=== PATIENT | female | born 1965 | race Caucasian/White ===

== ENCOUNTER 2016-10-29 13:25 | Emergency (ER) | payer SELFPAY ==
[~2016-10-29] VITALS: Ht 167.6 cm; Wt 98.0 kg
[2016-10-29 13:26] VITALS: BP 169/89; PULSE 88; RESP 15; TEMP 98.3; O2SAT 98
[2016-10-29 13:53] VITALS: BP_SYST 131; BP_SYST 137; BP_DIAS 70; BP_DIAS 75; O2SAT 99
[2016-10-29] MEDS ORDERED: ASPIRIN 325 MG TAB PO ONE (14:00)
[2016-10-29] MEDS ORDERED: SODIUM CHLORIDE 0.9% FLUSH 10 ML FLUSH IVF PRN (14:00)
--- NOTE | 2016-10-29 14:31 | PD ---
HPI Chief Complaint: Chest Pain Time Seen by Provider: 14:19 Travel History International Travel<30 days: No Contact w/Intl Traveler<30days: No Traveled to known affect area: No History of Present Illness HPI 51-year-old female that is unaware that presents to the ED for evaluation of right-sided chest pain. Per patient the pain goes from the right side to the mid chest. Per patient it lasted for about an hour. Per patient now it's better and she had nausea. Per patient she is also improved. Per patient she' s had 3 episodes of this before and she didn't think much of it. Per patient she was concerned mainly because of her age as well as the pain being so severe initially. Per patient the pain was severe sharp and constant. She denies any history of heart disease on herself. She takes no medications. The patient her pain is completely gone now. She denies any bowel movement or urinary symptoms. Per patient her pain [id number]. No fevers chills or sweats. No recent travel. No control use. All history of alcohol abuse and she is 10 years sober. No smoking history. No family history of heart disease. PFSH Past Medical History Medical History: Denies Significant Hx Tetanus Vaccination: Unknown Influenza Vaccination: No ?: Not Past Surgical History Hysterectomy: Yes Social History Alcohol Use: No Tobacco Use: No Substance Use: No Allergies-Medications (Allergen,Severity, Reaction): Coded Allergies: Amoxicillin (Verified Allergy, Severe, RASH, 10/29/16) Reported Meds & Prescriptions Reported Meds & Active Scripts Active No Active Prescriptions or Reported Medications Review of Systems Except as stated in HPI: all other systems reviewed are Neg Physical Exam Narrative GENERAL: SKIN: Warm and dry. HEAD: Atraumatic. Normocephalic. EYES: Pupils equal and round. No scleral icterus. No injection or drainage. ENT: No nasal bleeding or discharge. Mucous membranes pink and moist. Tongue is midline. No uvula deviation. NECK: Trachea midline. No JVD. CARDIOVASCULAR: Regular rate and rhythm. No murmurs, S3, S4. Chest pain is not reproducible with touch. RESPIRATORY: No accessory muscle use. Clear to auscultation. Breath sounds equal bilaterally. GASTROINTESTINAL: Abdomen soft, non-tender, nondistended. Hepatic and splenic margins not palpable. MUSCULOSKELETAL: Extremities without clubbing, cyanosis, or edema. No obvious deformities. Full range of motion of the upper and lower extremities bilaterally. 2+ pulses bilaterally. NEUROLOGICAL: Awake and alert. No obvious cranial nerve deficits. Motor grossly within normal limits. Five out of 5 muscle strength in the arms and legs. Normal speech. PSYCHIATRIC: Appropriate mood and affect; insight and judgment normal. Data Data Last Documented VS Vital Signs Date Time Temp Pulse Resp B/P Pulse Ox O2 Delivery O2 Flow Rate FiO2 10/29/16 13:53 137/75 131/70 10/29/16 13:49 Nasal Cannula 2 10/29/16 13:26 98.3 88 15 98 Orders Electrocardiogram (10/29/16 13:56) Ckmb (Isoenzyme) Profile (10/29/16 13:56) Complete Blood Count With Diff (10/29/16 13:56) Comprehensive Metabolic Panel (10/29/16 13:56) Magnesium (Mg) (10/29/16 13:56) Troponin I (10/29/16 13:56) Lipase (10/29/16 13:56) Chest, Single Ap (10/29/16 13:56) Ecg Monitoring (10/29/16 13:56) Bilateral Bp Monitoring (10/29/16 13:56) Iv Access Insert/Monitor (10/29/16 13:56) Oximetry (10/29/16 13:56) Aspirin (Aspirin) (10/29/16 14:00) Sodium Chloride 0.9% Flush (Ns Flush) (10/29/16 14:00) Us Abdomen Gallbladder (10/29/16 ) Diphenhydramine Inj (Benadryl Inj) (10/29/16 15:00) Labs Laboratory Tests Test 10/29/16 14:10 White Blood Count 9.0 TH/MM3 Red Blood Count 4.83 MIL/MM3 Hemoglobin 14.2 GM/DL Hematocrit 40.7 % Mean Corpuscular Volume 84.2 FL Mean Corpuscular Hemoglobin 29.3 PG Mean Corpuscular Hemoglobin 34.8 % Concent Red Cell Distribution Width 13.4 % Platelet Count 250 TH/MM3 Mean Platelet Volume 9.1 FL Neutrophils (%) (Auto) 58.7 % Lymphocytes (%) (Auto) 31.7 % Monocytes (%) (Auto) 6.8 % Eosinophils (%) (Auto) 2.3 % Basophils (%) (Auto) 0.5 % Neutrophils # (Auto) 5.3 TH/MM3 Lymphocytes # (Auto) 2.9 TH/MM3 Monocytes # (Auto) 0.6 TH/MM3 Eosinophils # (Auto) 0.2 TH/MM3 Basophils # (Auto) 0.0 TH/MM3 CBC Comment DIFF FINAL Differential Comment Sodium Level 140 MEQ/L Potassium Level 3.6 MEQ/L Chloride Level 103 MEQ/L Carbon Dioxide Level 26.5 MEQ/L Anion Gap 11 MEQ/L Blood Urea Nitrogen 20 MG/DL Creatinine 0.70 MG/DL Estimat Glomerular Filtration 88 ML/MIN Rate Random Glucose 114 MG/DL Calcium Level 8.8 MG/DL Magnesium Level 1.8 MG/DL Total Bilirubin 0.3 MG/DL Aspartate Amino Transf 37 U/L (AST/SGOT) Alanine Aminotransferase 41 U/L (ALT/SGPT) Alkaline Phosphatase 74 U/L Total Creatine Kinase 45 U/L Troponin I LESS THAN 0.02 NG/ML Total Protein 7.4 GM/DL Albumin 3.4 GM/DL Lipase 110 U/L MDM Medical Decision Making Medical Screen Exam Complete: Yes Emergency Medical Condition: Yes Medical Record Reviewed: Yes Interpretation(s) EKG shows sinus rhythm with no sign of acute ischemia or arrhythmia. Read by me and attending. CBC & BMP Diagram 10/29/16 14:10 LFTS WNL troponin and CKMB negative lipase WNL Last Impressions Chest X-Ray 10/29/16 1356 Signed Impressions: Service Date/Time: Saturday, October 29, 2016 14:28 - CONCLUSION: No acute disease. Isael Lu MD FACR Gall Bladder Ultrasound 10/29/16 0000 Signed Impressions: Service Date/Time: Saturday, October 29, 2016 14:49 - CONCLUSION: 1. Cholelithiasis with mild gallbladder wall thickening. However, no sonographic Valdes sign is present suggesting against acute cholecystitis. 2. Hepatic steatosis. Joselito Puga MD Differential Diagnosis Chest pain versus gallbladder disease versus cholecystitis versus pancreatitis versus abdominal pain versus ACS versus pneumonia versus costochondritis Narrative Course 51-year-old female that presents to the ED for evaluation of chest pain. Patient was properly examined and was found to have signs and symptoms of unclear etiology. Labs and imaging ordered. Labs and imaging showed no sign of acute disease other than gallbladder stones. At this time this appears to be a typical. Case was discussed in my attending Dr. Schaeffer who recommended that we give the option of simple stress test. Patient declines at this time. Patient will like to go home. Patient very anxious to go home. Patient was told that she needs to follow up with PCP. See ED for worsening symptoms. Close follow with PCP. At this time from physical exam and lab work this appears to be biliary colic. She was told that if anything worsens she is to come back to the ED. She agrees and understands this plan. Take aspirin. Diagnosis Primary Impression: Atypical chest pain Additional Impression: Cholelithiasis Qualified Code: K80.20 - Calculus of gallbladder without cholecystitis without obstruction Patient Instructions: General Instructions Additional Instructions: Aspirin 81 mg every day. Follow up with PCP or General surgeon for the pain if this continues as you could need gallbladder out. See ED if worst or new symptoms. Med/Other Pt SpecificInfo: No Change to Meds Scripts No Active Prescriptions or Reported Meds Disposition: 01 DISCHARGE HOME Condition: Stable Marquis Subramanian Oct 29, 2016 14:31
[2016-10-29 14:38] LABS: AUTOMATED NEUTROPHIL # 5.3 TH/MM3 (1.8-7.7); BASOPHIL % 0.5 % (0.0-2.0); EOSINOPHIL # 0.2 TH/MM3 (0-0.4); EOSINOPHIL % 2.3 % (0.0-4.0); HEMATOCRIT 40.7 % (35.0-46.0); HEMO FLAGS DIFF FINAL; LYMPH % 31.7 % (9.0-44.0); LYMPHOCYTE # 2.9 TH/MM3 (1.0-4.8); MEAN CELL VOLUME 84.2 FL (80.0-100.0); MEAN CORPUSCULAR HEMOGLOBIN 29.3 PG (27.0-34.0); MEAN CORPUSCULAR HGB CONC 34.8 % (32.0-36.0); MONO % 6.8 % (0.0-8.0); NEUT % 58.7 % (16.0-70.0); PLATELET COUNT 250 TH/MM3 (150-450); RED BLOOD COUNT 4.83 MIL/MM3 (4.00-5.30); RED CELL DISTRIBUTION WIDTH 13.4 % (11.6-17.2)
[2016-10-29] MEDS ORDERED: diphenhydrAMINE HCL 50 MG/ML VIAL IV PUSH ONE (15:00)
--- NOTE | 2016-10-29 15:04 | RADRPT ---
EXAM DATE/TIME: 10/29/2016 14:28 [facility] COMPARISON: No previous studies available for comparison. INDICATIONS : Chest pain; shortness of breath. MEDICAL HISTORY : None. SURGICAL HISTORY : None. ENCOUNTER: Initial ACUITY: 1 day PAIN SCORE: 10/10 LOCATION: Right lateral Chest. FINDINGS: A single view of the chest demonstrates the lungs to be symmetrically aerated without evidence of mas s, infiltrate or effusion. The cardiomediastinal contours are unremarkable. Osseous structures are intact. CONCLUSION: No acute disease. Isael Lu MD FACR on October 29, 2016 at 15:02 Board Certified Radiologist. This report was verified electronically.
[2016-10-29 15:05] LABS: ALT (GPT) 41 U/L (10-53); ANION GAP 11 MEQ/L (5-15); AST (GOT) 37 U/L (15-37); BICARBONATE 26.5 MEQ/L (21.0-32.0); BLOOD UREA NITROGEN 20 MG/DL (7-18); CHLORIDE 103 MEQ/L (98-107); GLOMERULAR FILTRATION RATE 88 ML/MIN (>89); MAGNESIUM 1.8 MG/DL (1.5-2.5); POTASSIUM 3.6 MEQ/L (3.5-5.1); SODIUM (NA) 140 MEQ/L (136-145)
[2016-10-29 15:09] LABS: ALKALINE PHOSPHATASE 74 U/L (45-117); TOTAL BILIRUBIN ADULT 0.3 MG/DL (0.2-1.0)
[2016-10-29 15:10] LABS: CREATINE KINASE 45 U/L (26-192)
--- NOTE | 2016-10-29 16:17 | RADRPT ---
EXAM DATE/TIME: 10/29/2016 14:49 [facility] COMPARISON: No previous studies available for comparison. INDICATIONS : Right upper quadrant pain. MEDICAL HISTORY : Abdomen pain. SURGICAL HISTORY : Hysterectomy. Nephrectomy, right. ENCOUNTER: Initial ACUITY: 1 day PAIN SCORE: 3/10 LOCATION: Right upper quadrant MEASUREMENTS: LIVER: 15.1 cm length COMMON DUCT: 3 mm RIGHT KIDNEY: Surgically removed. FINDINGS: LIVER: Increased echotexture without focal lesion or ductal dilatation. COMMON DUCT: No intraluminal mass or stone visualized. GALLBLADDER: There are multiple small shadowing stones in the gallbladder. Gallbladder wall thickness measures up to 5 mm. Sonographic Valdes sign is negative. PANCREAS: Not well visualized. Visualized portions are within normal limits. RIGHT KIDNEY: Surgically absent. CONCLUSION: 1. Cholelithiasis with mild gallbladder wall thickening. However, no sonographic Valdes sign is prese nt suggesting against acute cholecystitis. 2. Hepatic steatosis. Joselito Puga MD on October 29, 2016 at 16:14 Board Certified Radiologist. This report was verified electronically.
[2016-10-29 16:42] VITALS: BP 122/69
--- NOTE | 2016-10-30 13:15 | EKG ---
Date Performed: 10/29/2016 Time Performed: 13:57:19 PTAGE: 51 years EKG: Sinus rhythm NORMAL ECG NO PREVIOUS TRACING DOCTOR: Vickie Quintanilla Interpretating Date/Time 10/30/2016 13:11:27
== END 2016-10-29 16:43 | disposition home or self-care (01) ==
LOC: NEPC 13:25
DX: R07.89 Other chest pain (principal); K80.20 Calculus of gallbladder without cholecystitis without obstruction; Z88.0 Allergy status to penicillin
CPT/HCPCS: 71010; 76705; 80053; 82550; 83690; 83735; 84484; 85025; 93005; 96374; 99285; J1200

== ENCOUNTER 2016-11-02 21:46 | Inpatient (IN) | payer SELFPAY ==
[~2016-11-02] VITALS: Ht 172.7 cm; Wt 68.0 kg
[2016-11-02 21:48] VITALS: BP 162/83; PULSE 85; RESP 18; TEMP 98.7; O2SAT 97
[2016-11-02] MEDS ORDERED: SODIUM CHLOR 0.9% 1000 ML INJ 1,000 ML IV SCH (22:37)
--- NOTE | 2016-11-02 22:40 | PD ---
HPI Chief Complaint: Abdominal Pain Time Seen by Provider: 22:28 Travel History International Travel<30 days: No Contact w/Intl Traveler<30days: No Traveled to known affect area: No History of Present Illness HPI 51-year-old female seen in the emergency department 4 days ago for chest/ abdominal pain, had a right upper quadrant ultrasound performed which showed cholelithiasis with mild gallbladder wall thickening, here today for evaluation of right upper quadrant abdominal pain. The patient was treated and released from the emergency department 4 days ago and states that her pain had resolved until about an hour and half ago. The patient reports nausea and decreased appetite. She denies fevers or chills. Pain is moderate, constant, worse with movement and palpation. PFSH Past Surgical History Hysterectomy: Yes Social History Alcohol Use: No Tobacco Use: No Substance Use: No Allergies-Medications (Allergen,Severity, Reaction): Coded Allergies: Amoxicillin (Verified Allergy, Severe, RASH, 10/29/16) Reported Meds & Prescriptions Reported Meds & Active Scripts Active No Active Prescriptions or Reported Medications Review of Systems Except as stated in HPI: all other systems reviewed are Neg Physical Exam Narrative GENERAL: Well-developed, well-nourished, overweight, comfortable, no apparent distress. SKIN: Focused skin assessment warm/dry. HEAD: Atraumatic. Normocephalic. EYES: Pupils equal and round. No scleral icterus. No injection or drainage. ENT: Mucous membranes pink and moist. CARDIOVASCULAR: Regular rate and rhythm. RESPIRATORY: No accessory muscle use. Clear to auscultation. Breath sounds equal bilaterally. GASTROINTESTINAL: Abdomen soft, nondistended. Moderate right upper quadrant tenderness with Valdes sign. Rest of abdomen is soft and nontender. Normal bowel sounds. MUSCULOSKELETAL: No obvious deformities. No clubbing. No cyanosis. No edema. NEUROLOGICAL: Awake and alert. No obvious cranial nerve deficits. Motor grossly within normal limits. Normal speech. PSYCHIATRIC: Appropriate mood and affect; insight and judgment normal. Data Data Last Documented VS Vital Signs Date Time Temp Pulse Resp B/P Pulse Ox O2 Delivery O2 Flow Rate FiO2 11/02/16 23:11 18 94 Room Air 11/02/16 23:10 71 129/77 11/02/16 21:48 98.7 Orders Complete Blood Count With Diff (11/02/16 22:37) Comprehensive Metabolic Panel (11/02/16 22:37) Lipase (11/02/16 22:37) Iv Access Insert/Monitor (11/02/16 22:37) Ecg Monitoring (11/02/16 22:37) Oximetry (11/02/16 22:37) Ondansetron Inj (Zofran Inj) (11/02/16 22:45) Sodium Chlor 0.9% 1000 Ml Inj (Ns 1000 M (11/02/16 22:37) Sodium Chloride 0.9% Flush (Ns Flush) (11/02/16 22:45) Ketorolac Inj (Toradol Inj) (11/02/16 22:45) Calcium Gluconate Inj (Calcium Gluconate (11/03/16 00:00) Potassium Chlor 20 Meq Premix (Kcl 20 Me (11/03/16 00:00) Ct Abd/Pel W Iv Contrast(Rout) (11/03/16 ) Iohexol 350 Inj (Omnipaque 350 Inj) (11/03/16 01:42) Us Abdomen Gallbladder (11/03/16 ) Admit To Inpatient (11/03/16 ) Vital Signs (Adult) Q4H (11/03/16 02:27) Activity Oob With Assistance (11/03/16 02:27) Privacy Compliance Manager / Telemetry .CONTINUOUS (11/03/16 02:27) Diet Npo (11/03/16 Breakfast) Sodium Chlor 0.9% 1000 Ml Inj (Ns 1000 M (11/03/16 02:27) Sodium Chloride 0.9% Flush (Ns Flush) (11/03/16 02:30) Sodium Chloride 0.9% Flush (Ns Flush) (11/03/16 09:00) Comprehensive Metabolic Panel (11/04/16 06:00) Complete Blood Count With Diff (11/04/16 06:00) Naloxone Inj (Narcan Inj) (11/03/16 02:30) Inpatient Certification (11/03/16 ) Labs Laboratory Tests Test 11/02/16 22:50 White Blood Count 7.8 TH/MM3 Red Blood Count 4.69 MIL/MM3 Hemoglobin 13.9 GM/DL Hematocrit 39.9 % Mean Corpuscular Volume 84.9 FL Mean Corpuscular Hemoglobin 29.6 PG Mean Corpuscular Hemoglobin 34.8 % Concent Red Cell Distribution Width 13.9 % Platelet Count 213 TH/MM3 Mean Platelet Volume 8.9 FL Neutrophils (%) (Auto) 57.8 % Lymphocytes (%) (Auto) 32.1 % Monocytes (%) (Auto) 7.3 % Eosinophils (%) (Auto) 2.3 % Basophils (%) (Auto) 0.5 % Neutrophils # (Auto) 4.5 TH/MM3 Lymphocytes # (Auto) 2.5 TH/MM3 Monocytes # (Auto) 0.6 TH/MM3 Eosinophils # (Auto) 0.2 TH/MM3 Basophils # (Auto) 0.0 TH/MM3 CBC Comment DIFF FINAL Differential Comment Sodium Level 143 MEQ/L Potassium Level 2.6 MEQ/L Chloride Level 113 MEQ/L Carbon Dioxide Level 22.1 MEQ/L Anion Gap 8 MEQ/L Blood Urea Nitrogen 12 MG/DL Creatinine 0.48 MG/DL Estimat Glomerular Filtration 136 ML/MIN Rate Random Glucose 98 MG/DL Calcium Level 6.2 MG/DL Protein Corrected Calcium 6.8 MG/DL Total Bilirubin 3.2 MG/DL Aspartate Amino Transf 209 U/L (AST/SGOT) Alanine Aminotransferase 489 U/L (ALT/SGPT) Alkaline Phosphatase 130 U/L Total Protein 5.7 GM/DL Albumin 2.7 GM/DL Lipase 104 U/L MDM Medical Decision Making Medical Screen Exam Complete: Yes Emergency Medical Condition: Yes Medical Record Reviewed: Yes Differential Diagnosis Cholelithiasis, biliary colic, cholecystitis Narrative Course Initial vital signs show heart rate 85, blood pressure 162/83, pulse ox 97% on room air, oral temp of 98.7F. CBC shows WBC 7.8, hemoglobin 13.9, hematocrit 39.9, platelets 213. CMP is remarkable for potassium 2.6, protein corrected a calcium 6.8, T bili 3.2 , AST 29, ALT 489, alkaline phosphatase 130 Lipase is 104. Potassium and calcium were replenished parenterally. The patient states she has not had an alcoholic beverage in over 10 years and denies taking any Tylenol recently or overusing Tylenol. She also does not use illicit drugs. 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 CT abdomen pelvis: FINDINGS: Lung bases are clear. Osseous structures are intact. No pleural or pericardial effusions are seen. A fat containing hernia at the esophageal hiatus is noted. Liver, gallbladder, spleen, pancreas, adrenal glands, left kidney are normal in appearance. The patient is status post right nephrectomy. Urinary bladder is unremarkable. The patient is status post hysterectomy. No inflammatory changes are seen within the abdomen or pelvis. No adenopathy. 1.3 cm left ovarian cyst. Osseous structures are intact. Lung bases are clear. CONCLUSION: No acute disease. Patient was made aware of all findings. Right upper quadrant ultrasound will be ordered for further evaluation. Patient likely has choledocholithiasis given that she was diagnosed with gallstones 4 days ago and now has elevation in LFTs and T bili. Patient be admitted for further treatment and evaluation and likely GI consultation. Case discussed with hospitalist Dr. Zazueta who will admit the patient to her service. Diagnosis Primary Impression: Acute hepatitis Additional Impressions: Hyperbilirubinemia Right upper quadrant abdominal pain Hypokalemia Hypocalcemia Admitting Information Admitting Physician Requests: Admit Scripts No Active Prescriptions or Reported Meds Chapo Gaytan MD Nov 02, 2016 22:40
[2016-11-02] MEDS ORDERED: KETOROLAC TROMETHAMINE 30 MG/ML (IVP) VIAL IV PUSH ONE (22:45)
[2016-11-02] MEDS ORDERED: ONDANSETRON HCL 4 MG/2 ML VIAL IVP ONE (22:45)
[2016-11-02] MEDS ORDERED: SODIUM CHLORIDE 0.9% FLUSH 10 ML FLUSH IV FLUSH PRN (22:45)
[2016-11-02 23:10] VITALS: BP 129/77; PULSE 71; RESP 18; O2SAT 94
[2016-11-02 23:11] VITALS: RESP 18; O2SAT 94
[2016-11-02 23:23] LABS: AUTOMATED NEUTROPHIL # 4.5 TH/MM3 (1.8-7.7); BASOPHIL % 0.5 % (0.0-2.0); EOSINOPHIL # 0.2 TH/MM3 (0-0.4); EOSINOPHIL % 2.3 % (0.0-4.0); HEMATOCRIT 39.9 % (35.0-46.0); HEMO FLAGS DIFF FINAL; LYMPH % 32.1 % (9.0-44.0); LYMPHOCYTE # 2.5 TH/MM3 (1.0-4.8); MEAN CELL VOLUME 84.9 FL (80.0-100.0); MEAN CORPUSCULAR HEMOGLOBIN 29.6 PG (27.0-34.0); MEAN CORPUSCULAR HGB CONC 34.8 % (32.0-36.0); MONO % 7.3 % (0.0-8.0); NEUT % 57.8 % (16.0-70.0); PLATELET COUNT 213 TH/MM3 (150-450); RED BLOOD COUNT 4.69 MIL/MM3 (4.00-5.30); RED CELL DISTRIBUTION WIDTH 13.9 % (11.6-17.2); WHITE BLOOD COUNT 7.8 TH/MM3 (4.0-11.0)
[2016-11-02 23:43] LABS: BICARBONATE 22.1 MEQ/L (21.0-32.0); TOTAL BILIRUBIN ADULT 3.2 MG/DL (0.2-1.0)
[2016-11-02 23:51] LABS: CALCIUM-PROTEIN CORRECTED 6.8 MG/DL (8.5-10.1); POTASSIUM 2.6 MEQ/L (3.5-5.1)
[2016-11-03] MEDS ORDERED: CALCIUM GLUCONATE INJ 1 GM in DEXTROSE 5% IN WATER 100ML INJ 100 ML IV ONE ×2
[2016-11-03] MEDS: POTASSIUM CHLOR 20 MEQ PREMIX 100 ML IV SCH ×2 (01:40→02:04)
[2016-11-03] MEDS ORDERED: IOHEXOL 350 MG/ML 10 ML VIAL (for RAD DIAG) IV ONE (01:42)
--- NOTE | 2016-11-03 01:44 | RADRPT ---
EXAM DATE/TIME: 11/03/2016 01:18 [facility] COMPARISON: US ABDOMEN - GALLBLADDER, October 29, 2016, 14:49. INDICATIONS : Right upper quadrant pain. IV CONTRAST: 80 cc Omnipaque 350 (iohexol) IV ORAL CONTRAST: No oral contrast ingested. RADIATION DOSE: 16.68 CTDIvol (mGy) MEDICAL HISTORY : None SURGICAL HISTORY : Hysterectomy. Nephrectomy, right. ENCOUNTER: Initial ACUITY: 4 - 6 days PAIN SCALE: 6/10 LOCATION: Right upper quadrant TECHNIQUE: Volumetric scanning of the abdomen and pelvis was performed. Using automated exposure control and ad justment of the mA and/or kV according to patient size, radiation dose was kept as low as reasonably achievable to obtain optimal diagnostic quality images. DICOM format image data is available electro nically for review and comparison. FINDINGS: Lung bases are clear. Osseous structures are intact. No pleural or pericardial effusions are seen. A fat containing hernia at the esophageal hiatus is noted. Liver, gallbladder, spleen, pancreas, adrena l glands, left kidney are normal in appearance. The patient is status post right nephrectomy. Urinary bladder is unremarkable. The patient is status post hysterectomy. No inflammatory changes are seen w ithin the abdomen or pelvis. No adenopathy. 1.3 cm left ovarian cyst. Osseous structures are intact. Lung bases are clear. CONCLUSION: No acute disease. James Nguyễn MD on November 03, 2016 at 1:40 Board Certified Radiologist. This report was verified electronically.
[2016-11-03] MEDS ORDERED: SODIUM CHLORIDE 0.9% FLUSH 10 ML FLUSH IV FLUSH PRN (02:30)
[2016-11-03] MEDS ORDERED: NALOXONE HCL 0.4 MG/ML AMP IV PRN (02:30)
[2016-11-03] MEDS ORDERED: POTASSIUM CHLORIDE 20 MEQ CONTROLLED RELEASE TAB PO ONE (02:45)
--- NOTE | 2016-11-03 03:08 | RADRPT ---
EXAM DATE/TIME: 11/03/2016 02:31 [facility] COMPARISON: No previous studies available for comparison. INDICATIONS : Right upper quadrant pain. MEDICAL HISTORY : Hysterectomy. Nephrectomy, right. SURGICAL HISTORY : Hysterectomy. ENCOUNTER: Subsequent ACUITY: 4-6 days PAIN SCORE: 0/10 LOCATION: Right upper quadrant MEASUREMENTS: LIVER: 17.0 cm length COMMON DUCT: 8 mm RIGHT KIDNEY: Removed. FINDINGS: LIVER: Increased echotexture without focal lesion or ductal dilatation. COMMON DUCT: No intraluminal mass or stone visualized. GALLBLADDER: Cholelithiasis is noted, without wall thickening or pericholecystic fluid. Negative sonographic Bay y's sign. PANCREAS: The visualized portions are within normal limits. RIGHT KIDNEY: Nephrectomy. CONCLUSION: 1. Cholelithiasis. 2. Mild hepatic steatosis. James Nguyễn MD on November 03, 2016 at 3:05 Board Certified Radiologist. This report was verified electronically.
--- NOTE | 2016-11-03 05:46 | HHI.HP ---
HPI Service [facility] Hospitalists Primary Care Physician No Primary Care Physician Admission Diagnosis acute hepatitis, hyperbilirubinemia, abdominal pain, hypokalemia Diagnoses: (1) Cholelithiasis Chief Complaint: Right upper abdominal pain Travel History International Travel<30 Days: No Contact w/Intl Traveler <30 Da: No Traveled to Known Affected Are: No History of Present Illness Written by Abigail Crane, acting as scribe for Dr. Zazueta on 11/03/16 at 05:40. The patient was seen 10/29/2016 for chest pain and abdominal pain in the emergency room here at [facility]. She was found to have cholelithiasis without cholecystitis and was discharged home. The patient reports she had 3 "gallbladder attacks" prior to that ER visit. The patient reports right upper abdominal pain, nausea, kirt-colored stool, diarrhea, and dark urine. Denies vomiting. Symptoms started on Tuesday. Denies fevers. Last time she was here she was told she had gallstones. Denies recent antibiotics. Chest pain, shortness of breath. Gallbladder/abdominal ultrasound shows cholelithiasis with negative sonographic Valdes's sign and mild hepatic steatosis. Abdomen/pelvis CT demonstrates no acute disease. . Review of Systems Except as stated in HPI: all other systems reviewed are Neg Past Family Social History Past Medical History Anxiety Suspected GUERO Denies hypertension, diabetes mellitus, CAD, respiratory problems, DVTs, PEs, CVAs, cancers, thyroid problems . 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 Reported Medications Reported Meds & Active Scripts Active No Active Prescriptions or Reported Medications . Allergies: Coded Allergies: Amoxicillin (Verified Allergy, Severe, RASH, 10/29/16) Active Ordered Medications Current Medications Ondansetron HCl 4 mg 4 mg ONCE ONCE IVP Last administered on 11/02/16 22:57; Start 11/02/16 at 22:45; Stop 11/02/16 at 22:46; Status DC Sodium Chloride (NS 1000 ml Inj) 1,000 ml @ 1,000 mls/hr Q1H IV Last administered on 11/02/16 22:45; Start 11/02/16 at 22:37; Stop 11/02/16 at 23:36; Status DC Sodium Chloride (NS Flush) 2 ml UNSCH PRN IV FLUSH FLUSH AFTER USING IV ACCESS ; Start 11/02/16 at 22:45; Stop 11/03/16 at 02:30; Status DC Ketorolac Tromethamine 30 mg 30 mg ONCE ONCE IV PUSH Last administered on 22:57; Start 11/02/16 at 22:45; Stop 11/02/16 at 22:46; Status DC Calcium Gluconate 1 gm/Dextrose 110 ml @ 110 mls/hr ONCE ONCE IV Last administered on 11/03/16 00:08; Start 11/03/16 at 00:00; Stop 11/03/16 at 00:59; Status DC Potassium Chloride (KCl 20 Meq Premix Inj) 100 ml @ 50 mls/hr Q2H IV Last administered on 11/03/16 02:04; Start 11/03/16 at 00:00; Stop 11/03/16 at 03:59; Status DC Iohexol 80 ml 80 ml STK-MED ONCE IV Last administered on 11/03/16 01:42; Start 11/03/16 at 01:42; Stop 11/03/16 at 01:43; Status DC Sodium Chloride (NS 1000 ml Inj) 1,000 ml @ 100 mls/hr Q10H IV ; Start 11/03/16 at 02:27 Sodium Chloride (NS Flush) 2 ml UNSCH PRN IV FLUSH FLUSH AFTER USING IV ACCESS ; Start 11/03/16 at 02:30 Sodium Chloride (NS Flush) 2 ml BID IV FLUSH ; Start 11/03/16 at 09:00 Naloxone HCl (Narcan Inj) 0.4 mg UNSCH PRN IV SEE LABEL COMMENTS; Start at 02:30 Potassium Chloride (KCl) 40 meq ONCE ONCE PO ; Start 11/03/16 at 02:45; Stop 11/03/16 at 02:46; Status DC . Family History Denies any significant family medical problems or illness . Social History Tobacco: denies Alcohol: former alcohol abuse, no alcohol in 10 years Illicit Drugs: denies Originally from [place], moved here in July 2016. 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 Physical Exam Vital Signs Vital Signs Date Time Temp Pulse Resp B/P Pulse Ox O2 Delivery O2 Flow Rate FiO2 11/02/16 23:11 18 94 Room Air 11/02/16 23:10 71 18 129/77 94 Room Air 11/02/16 21:48 98.7 85 18 162/83 97 Physical Exam GENERAL: This is a middle-aged female patient, in no apparent distress. SKIN: No rashes, ecchymoses or lesions. Cool and dry. HEAD: Atraumatic. Normocephalic. EYES: + scleral icterus. No injection or drainage. ENT: Nose without bleeding, purulent drainage. NECK: Trachea midline. No JVD. CARDIOVASCULAR: Regular rate and rhythm without murmurs, gallops, or rubs. RESPIRATORY: Clear to auscultation. Breath sounds equal bilaterally. No wheezes , rales, or rhonchi. GASTROINTESTINAL: Abdomen soft, tender RUQ, nondistended. No guarding. MUSCULOSKELETAL: Extremities without clubbing, cyanosis, or edema. No calf tenderness. NEUROLOGICAL: Awake and alert. Motor and sensory grossly within normal limits. Normal speech. . Laboratory Laboratory Tests Test 11/02/16 22:50 White Blood Count 7.8 Red Blood Count 4.69 Hemoglobin 13.9 Hematocrit 39.9 Mean Corpuscular Volume 84.9 Mean Corpuscular Hemoglobin 29.6 Mean Corpuscular Hemoglobin 34.8 Concent Red Cell Distribution Width 13.9 Platelet Count 213 Mean Platelet Volume 8.9 Neutrophils (%) (Auto) 57.8 Lymphocytes (%) (Auto) 32.1 Monocytes (%) (Auto) 7.3 Eosinophils (%) (Auto) 2.3 Basophils (%) (Auto) 0.5 Neutrophils # (Auto) 4.5 Lymphocytes # (Auto) 2.5 Monocytes # (Auto) 0.6 Eosinophils # (Auto) 0.2 Basophils # (Auto) 0.0 CBC Comment DIFF FINAL Differential Comment Sodium Level 143 Potassium Level 2.6 Chloride Level 113 Carbon Dioxide Level 22.1 Anion Gap 8 Blood Urea Nitrogen 12 Creatinine 0.48 Estimat Glomerular Filtration 136 Rate Random Glucose 98 Calcium Level 6.2 Protein Corrected Calcium 6.8 Total Bilirubin 3.2 Aspartate Amino Transf 209 (AST/SGOT) Alanine Aminotransferase 489 (ALT/SGPT) Alkaline Phosphatase 130 Total Protein 5.7 Albumin 2.7 Lipase 104 Result Diagram: 11/02/16224911/02/16 225 Imaging Last Impressions Gall Bladder Ultrasound 11/03/16 0000 Signed Impressions: Service Date/Time: Thursday, November 03, 2016 02:31 - CONCLUSION: 1. Cholelithiasis. 2. Mild hepatic steatosis. James Nguyễn MD Abdomen/Pelvis CT 11/03/16 0000 Signed Impressions: Service Date/Time: Thursday, November 03, 2016 01:18 - CONCLUSION: No acute disease. James Nguyễn MD . Assessment and Plan Problem List: (1) Cholelithiasis ICD Code: K80.20 Status: Acute Assessment and Plan 51 y/o female with known cholelithiasis who presents to the ED for evaluation of RUQ abdominal pain: Symptomatic cholelithiasis; possible passed CBD stone; CBD dilatation - general surgery consultation - NPO status - IV fluid hydration with normal saline at 100 cc per hour Hypokalemia - Potassium 2.6 - IV and PO replacement - Recheck labs in a.m. and additional replacement as needed - Continuous cardiac telemetry to monitor for cardiac arrhythmias Hypocalcemia - Initial protein corrected calcium 6.8 - Calcium replaced IV - Recheck labs in a.m. and replace as needed Transaminitis - Suspect secondary to past CBD stone - AST 209 and ALT 49 on admission - Recheck labs in a.m. and follow results Hyperbilirubinemia - Total Bilirubin 3.2 - will recheck in a.m. and follow trends DVT prophylaxis - SCDs/TEDs This note was transcribed by vargas [Abigail Crane]. I, Dr. Yared Zazueta personally performed the history, physical exam, and medical decision making; and confirmed the accuracy of the information in the transcribed note. Authenticated by Dr. Yared Zazueta on 11/03/16 at 05:40. Discussed Condition With ER physician, RN, and patient . Physician Certification 2 Midnight Certification Type: Admission for Inpatient Services Order for Inpatient Services The services are ordered in accordance with Medicare regulations or non- Medicare payer requirements, as applicable. In the case of services not specified as inpatient-only, they are appropriately provided as inpatient services in accordance with the 2-midnight benchmark. Estimated LOS (days): 3 days is the estimated time the patient will need to remain in the hospital, assuming treatment plan goals are met and no additional complications. Post-Hospital Plan: Home Abigail Crane Nov 03, 2016 05:46 Yared Zazueta MD Nov 04, 2016 08:30
[2016-11-03] MEDS: SODIUM CHLOR 0.9% 1000 ML INJ 1,000 ML IV SCH ×3 (06:02→22:27)
[2016-11-03] MEDS ORDERED: CALCIUM GLUCONATE 10% 1 GM/10 ML VIAL IV PUSH ONE (06:15)
[2016-11-03] MEDS ORDERED: CALCIUM GLUCONATE INJ 1 GM in SODIUM CHLORIDE 0.9% INJ 100 ML IV ONE (07:00)
[2016-11-03 07:14] VITALS: BP 138/80; PULSE 65; RESP 12; O2SAT 96
[2016-11-03 08:00] VITALS: BP 141/79; PULSE 68; RESP 16; TEMP 98.1; O2SAT 99
[2016-11-03] MEDS: SODIUM CHLORIDE 0.9% FLUSH 10 ML FLUSH IV FLUSH SCH ×2 (09:00→19:52)
--- NOTE | 2016-11-03 10:02 | RADRPT ---
EXAM DATE/TIME: 11/03/2016 08:20 [place] COMPARISON: CT ABDOMEN & PELVIS W CONTRAST, November 03, 2016, 1:18. INDICATIONS : Abdominal pain. MEDICAL HISTORY : None. SURGICAL HISTORY : Hysterectomy. ENCOUNTER: Initial ACUITY: 2 day PAIN SCORE: 4/10 LOCATION: abdomen TECHNIQUE: Multiplanar, multisequence magnetic resonance imaging of the abdomen was performed. High-resolution 3D dataset was utilized to reconstruct maximum-intensity projection (MIP) images. FINDINGS: INTRAHEPATIC BILE DUCTS: Within normal limits. No significant anatomical variant is present. EXTRAHEPATIC BILE DUCTS: The common bile duct measures 7 mm. No stone or filling defect is identified. GALLBLADDER: Numerous small stones are noted. There is no evidence of wall thickening, or pericholecystic fluid. LIVER: Normal size. Increased fat content is identified. No concerning liver lesion is identified on this no n-contrast exam. PANCREAS: The main pancreatic duct is normal in size. There is no significant anatomical variant. Signal inte nsity is within normal limits. No mass is visualized on this non-contrast exam. OTHER: Anomalous abdominal venous channels are noted. The left renal vein courses behind the abdominal aorta to join the inferior vena cava. 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 The suprarenal inferior vena cava becomes very small in caliber through its hepatic segment. Normal hepatic venous drainage is identified into the inferior v deborah cava just below the diaphragm. There is no evidence of acute thrombosis. The remaining visualized structures demonstrate no acute abnormality on this non-contrast exam. CONCLUSION: 1. Cholelithiasis without active gallbladder inflammation. 2. Common bile duct is at the upper limits of normal in caliber measuring 7 mm. There were no intralu ginger filling defects. 3. Hepatic steatosis 4. 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 There are no findings indicating that this would be symptomatic. 5. No other significant abnormalities. Ulises Gomez MD on November 03, 2016 at 9:37 Board Certified Radiologist. This report was verified electronically.
[2016-11-03 11:56] VITALS: BP 143/84; PULSE 74; RESP 18; TEMP 98.1; O2SAT 100
[2016-11-03] MEDS: KETOROLAC TROMETHAMINE 30 MG/ML (IVP) VIAL IV PUSH PRN (12:40)
[2016-11-03 14:25] VITALS: BP 139/91
[2016-11-03 16:00] VITALS: BP 137/80; PULSE 62; RESP 17; TEMP 96.8; O2SAT 96
[2016-11-03 17:41] LABS: AUTOMATED NEUTROPHIL # 3.7 TH/MM3 (1.8-7.7); BASOPHIL % 0.4 % (0.0-2.0); EOSINOPHIL # 0.2 TH/MM3 (0-0.4); EOSINOPHIL % 2.3 % (0.0-4.0); HEMATOCRIT 39.7 % (35.0-46.0); HEMO FLAGS DIFF FINAL; LYMPH % 32.7 % (9.0-44.0); LYMPHOCYTE # 2.2 TH/MM3 (1.0-4.8); MEAN CELL VOLUME 87.7 FL (80.0-100.0); MEAN CORPUSCULAR HEMOGLOBIN 29.2 PG (27.0-34.0); MEAN CORPUSCULAR HGB CONC 33.3 % (32.0-36.0); MONO % 8.2 % (0.0-8.0); NEUT % 56.4 % (16.0-70.0); PLATELET COUNT 197 TH/MM3 (150-450); RED BLOOD COUNT 4.53 MIL/MM3 (4.00-5.30); WHITE BLOOD COUNT 6.6 TH/MM3 (4.0-11.0)
[2016-11-03 18:07] LABS: ALKALINE PHOSPHATASE 157 U/L (45-117); ALT (GPT) 618 U/L (10-53); ANION GAP 9 MEQ/L (5-15); AST (GOT) 269 U/L (15-37); BICARBONATE 23.2 MEQ/L (21.0-32.0); BLOOD UREA NITROGEN 9 MG/DL (7-18); CHLORIDE 107 MEQ/L (98-107); GLOMERULAR FILTRATION RATE 105 ML/MIN (>89); POTASSIUM 3.9 MEQ/L (3.5-5.1); SODIUM (NA) 139 MEQ/L (136-145); TOTAL BILIRUBIN ADULT 4.3 MG/DL (0.2-1.0)
--- NOTE | 2016-11-03 18:26 | PD.CONS ---
cc: Tod Waters MD HPI Service General Surgery Consult Requested By Dr. Zazueta Reason for Consult Cholelithiasis Primary Care Physician No Primary Care Physician History of Present Illness This is a 51-year-old female who recently moved from [place]. A few months ago she developed severe abdominal pain was told that she has gallstones in [place]. 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 On October 29 she came to [facility] emergency Department with chest pain likes symptoms. She reports that the pain radiated from her epigastric region to her back. At that time she was found to have cholelithiasis. She was DC'd home with instructions to follow-up with a general surgeon. On November 02 she arrives back to the emergency apartment with similar-like symptoms. Labs were obtained which showed a normal white count. She has a normal lipase. A gallbladder ultrasound was also obtained which showed cholelithiasis. Due to her elevated liver enzymes, a MRCP was obtained which did not show any common bile duct stones or filling defects. A General Surgery consultation was requested for evaluation of laparoscopic cholecystectomy. Review of Systems Constitutional: COMPLAINS OF: Change in appetite, DENIES: Fatigue, Chills Endocrine: DENIES: Polydipsia, Polyuria, Polyphagia Eyes: DENIES: Diplopia Ears, nose, mouth, throat: DENIES: Hearing loss Respiratory: DENIES: Cough Cardiovascular: DENIES: Dyspnea on Exertion Gastrointestinal: COMPLAINS OF: Abdominal pain, Diarrhea, Nausea, DENIES: Vomiting Genitourinary: DENIES: Urinary frequency Musculoskeletal: DENIES: Joint pain Integumentary: DENIES: Abnormal pigmentation Hematologic/lymphatic: DENIES: Bruising Immunologic/allergic: DENIES: Eczema Neurologic: DENIES: Abnormal gait, Headache Psychiatric: DENIES: Mood changes, Depression, Hallucinations Past Family Social History Past Medical History Suspected Obstructive Sleep Apnea Anxiety Past Surgical History Hysterectomy Facelift Reported Medications None Allergies: Coded Allergies: Amoxicillin (Verified Allergy, Severe, RASH, 10/29/16) Active Ordered Medications Current Medications Medications (Trade) Dose Ordered Sig/Afshan Route Start Time Stop Time Status Last Admin (NS 1000 ml Inj) 1,000 ml @ 100 mls/hr Q10H IV 11/03/16 02:27 11/03/16 06:02 (NS Flush) 2 ml UNSCH PRN IV FLUSH 11/03/16 02:30 (NS Flush) 2 ml BID IV FLUSH 11/03/16 09:00 (Narcan Inj) 0.4 mg UNSCH PRN IV 11/03/16 02:30 (Toradol Inj) 30 mg Q6H PRN IV PUSH 11/03/16 13:00 11/08/16 12:59 11/03/16 12:40 Family History Noncontributory Social History Denies tobacco use next line denies EtOH use Denies illicit drug use Next line 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 SKIN: Warm and dry. HEAD: Atraumatic. Normocephalic. EYES: Pupils equal and round. No scleral icterus. No injection or drainage. ENT: No nasal bleeding or discharge. Mucous membranes pink and moist. NECK: Trachea midline. CARDIOVASCULAR: Regular rate and rhythm. RESPIRATORY: No accessory muscle use. Clear to auscultation. Breath sounds equal bilaterally. GASTROINTESTINAL: Abdomen soft, obese, RUQ tenderness with palpation; non distended. MUSCULOSKELETAL: Extremities without clubbing, cyanosis, or edema. No obvious deformities. NEUROLOGICAL: Awake and alert. No obvious cranial nerve deficits. Motor grossly within normal limits. Five out of 5 muscle strength in the arms and legs. Normal speech. PSYCHIATRIC: Appropriate mood and affect; insight and judgment normal. Laboratory Laboratory Tests Test 11/02/16 11/03/16 22:50 16:03 White Blood Count 7.8 6.6 Red Blood Count 4.69 4.53 Hemoglobin 13.9 13.2 Hematocrit 39.9 39.7 Mean Corpuscular Volume 84.9 87.7 Mean Corpuscular Hemoglobin 29.6 29.2 Mean Corpuscular Hemoglobin 34.8 33.3 Concent Red Cell Distribution Width 13.9 14.0 Platelet Count 213 197 Mean Platelet Volume 8.9 8.7 Neutrophils (%) (Auto) 57.8 56.4 Lymphocytes (%) (Auto) 32.1 32.7 Monocytes (%) (Auto) 7.3 8.2 Eosinophils (%) (Auto) 2.3 2.3 Basophils (%) (Auto) 0.5 0.4 Neutrophils # (Auto) 4.5 3.7 Lymphocytes # (Auto) 2.5 2.2 Monocytes # (Auto) 0.6 0.5 Eosinophils # (Auto) 0.2 0.2 Basophils # (Auto) 0.0 0.0 CBC Comment DIFF FINAL DIFF FINAL Differential Comment Sodium Level 143 139 Potassium Level 2.6 3.9 Chloride Level 113 107 Carbon Dioxide Level 22.1 23.2 Anion Gap 8 9 Blood Urea Nitrogen 12 9 Creatinine 0.48 0.60 Estimat Glomerular Filtration 136 105 Rate Random Glucose 98 83 Calcium Level 6.2 8.6 Protein Corrected Calcium 6.8 Total Bilirubin 3.2 4.3 Aspartate Amino Transf 209 269 (AST/SGOT) Alanine Aminotransferase 489 618 (ALT/SGPT) Alkaline Phosphatase 130 157 Total Protein 5.7 7.1 Albumin 2.7 3.2 Lipase 104 Result Diagram: 11/03/16 1603 11/03/16 1603 Imaging Last 48 hours Impressions Gall Bladder Ultrasound 11/03/16 0000 Signed Impressions: Service Date/Time: Thursday, November 03, 2016 02:31 - CONCLUSION: 1. Cholelithiasis. 2. Mild hepatic steatosis. James Nguyễn MD Cholangiopancreatography MRI 11/03/16 0000 Signed Impressions: Service Date/Time: Thursday, November 03, 2016 08:20 - CONCLUSION: 1. Cholelithiasis without active gallbladder inflammation. 2. Common bile duct is at the upper limits of normal in caliber measuring 7 mm. There were no intraluminal filling defects. 3. Hepatic steatosis 4. 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 There are no findings indicating that this would be symptomatic. 5. No other significant abnormalities. Ulises Gomez MD Abdomen/Pelvis CT 11/03/16 0000 Signed Impressions: Service Date/Time: Thursday, November 03, 2016 01:18 - CONCLUSION: No acute disease. James Nguyễn MD Assessment and Plan Assessment and Plan 51 year old female with cholelithiasis and elevated liver enzymes -Recheck liver enzymes in the morning -Clear liquids tonight; NPO after midnight -Hold anticoagulation -Obtain consents -Thank you for this consult; we will continue to follow Discussed Condition With Linda Sánchez Ms. Nov 03, 2016 18:25
[2016-11-03 20:00] VITALS: BP 147/89; PULSE 79; RESP 18; TEMP 97; O2SAT 93
[2016-11-03] MEDS ORDERED: diphenhydrAMINE HCL 50 MG CAP PO PRN (22:45)
[2016-11-03] MEDS ORDERED: LACTATED RINGER'S 1000 ML IV PRN (23:00)
[2016-11-03] MEDS: ONDANSETRON HCL 4 MG/2 ML VIAL IV PUSH PRN (23:05)
[2016-11-04] VITALS: BP 138/83; PULSE 91; RESP 18; TEMP 97.9; O2SAT 93
[2016-11-04 06:10] LABS: AUTOMATED NEUTROPHIL # 3.9 TH/MM3 (1.8-7.7); BASOPHIL % 0.5 % (0.0-2.0); EOSINOPHIL # 0.1 TH/MM3 (0-0.4); EOSINOPHIL % 2.2 % (0.0-4.0); HEMATOCRIT 37.1 % (35.0-46.0); HEMO FLAGS DIFF FINAL; LYMPH % 26.6 % (9.0-44.0); LYMPHOCYTE # 1.6 TH/MM3 (1.0-4.8); MEAN CELL VOLUME 86.2 FL (80.0-100.0); MEAN CORPUSCULAR HEMOGLOBIN 29.2 PG (27.0-34.0); MEAN CORPUSCULAR HGB CONC 33.9 % (32.0-36.0); MONO % 7.1 % (0.0-8.0); NEUT % 63.6 % (16.0-70.0); PLATELET COUNT 194 TH/MM3 (150-450); RED CELL DISTRIBUTION WIDTH 13.8 % (11.6-17.2); WHITE BLOOD COUNT 6.1 TH/MM3 (4.0-11.0)
[2016-11-04 06:36] LABS: ANION GAP 7 MEQ/L (5-15); AST (GOT) 301 U/L (15-37); BICARBONATE 24.9 MEQ/L (21.0-32.0); BLOOD UREA NITROGEN 7 MG/DL (7-18); CHLORIDE 107 MEQ/L (98-107); GLOMERULAR FILTRATION RATE 103 ML/MIN (>89); POTASSIUM 3.9 MEQ/L (3.5-5.1); SODIUM (NA) 139 MEQ/L (136-145)
[2016-11-04 06:40] LABS: ALKALINE PHOSPHATASE 157 U/L (45-117); ALT (GPT) 619 U/L (10-53)
[2016-11-04] MEDS: KETOROLAC TROMETHAMINE 30 MG/ML (IVP) VIAL IV PUSH PRN ×2 (06:40→23:05)
[2016-11-04 08:00] VITALS: BP 116/75; PULSE 76; RESP 17; TEMP 97.5; O2SAT 93
[2016-11-04] MEDS: SODIUM CHLOR 0.9% 1000 ML INJ 1,000 ML IV SCH ×2 (08:27→18:27)
[2016-11-04] MEDS: SODIUM CHLORIDE 0.9% FLUSH 10 ML FLUSH IV FLUSH SCH ×2 (09:00→21:00)
[2016-11-04 12:00] VITALS: BP 141/84; PULSE 62; RESP 17; TEMP 96.7; O2SAT 96
[2016-11-04] MEDS ORDERED: LACTATED RINGER'S 1000 ML INJ 1,000 ML IV ONE (13:26)
[2016-11-04] MEDS ORDERED: PROPOFOL 200 MG/20 ML AMP IV ONE (13:26)
[2016-11-04] MEDS ORDERED: ONDANSETRON HCL 4 MG/2 ML VIAL IV PUSH ONE (13:26)
--- NOTE | 2016-11-04 15:02 | HHI.PR ---
Subjective Remarks Patient reports feeling better overall. Abdominal pain markedly improved. Lap honorio today. Objective Vitals Vital Signs Date Time Temp Pulse Resp B/P Pulse Ox O2 Delivery O2 Flow Rate FiO2 11/04/16 12:00 96.7 62 17 141/84 96 11/04/16 08:00 97.5 76 17 116/75 93 11/04/16 00:00 97.9 91 18 138/83 93 11/03/16 20:00 97.0 79 18 147/89 93 11/03/16 16:00 96.8 62 17 137/80 96 I/O 11/03/16 11/03/16 11/03/16 11/04/16 11/04/16 11/04/16 07:00 15:00 23:00 07:00 15:00 23:00 Intake Total 575 ml 926 ml 0 ml Balance 575 ml 926 ml 0 ml Intake Oral 0 ml IV Total 575 ml 926 ml # Voids 2 2 0 3 # Bowel Movements 0 Result Diagram: 11/04/16 0503 11/04/16 0503 Imaging Last Impressions Gall Bladder Ultrasound 11/03/16 0000 Signed Impressions: Service Date/Time: Thursday, November 03, 2016 02:31 - CONCLUSION: 1. Cholelithiasis. 2. Mild hepatic steatosis. James Nguyễn MD Cholangiopancreatography MRI 11/03/16 0000 Signed Impressions: Service Date/Time: Thursday, November 03, 2016 08:20 - CONCLUSION: 1. Cholelithiasis without active gallbladder inflammation. 2. Common bile duct is at the upper limits of normal in caliber measuring 7 mm. There were no intraluminal filling defects. 3. Hepatic steatosis 4. 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 There are no findings indicating that this would be symptomatic. 5. No other significant abnormalities. Ulises Gomez MD Abdomen/Pelvis CT 11/03/16 0000 Signed Impressions: Service Date/Time: Thursday, November 03, 2016 01:18 - CONCLUSION: No acute disease. James Nguyễn MD Objective Remarks GENERAL: This is a well-nourished, well-developed patient, in no apparent distress. CARDIOVASCULAR: Regular rate and rhythm without murmurs, gallops, or rubs. RESPIRATORY: Clear to auscultation. Breath sounds equal bilaterally. No wheezes , rales, or rhonchi. GASTROINTESTINAL: Abdomen soft, non-tender, nondistended. Normal active bowel sounds MUSCULOSKELETAL: Extremities without clubbing, cyanosis, or edema. NEURO: Alert & Oriented x4 to person, place, time, situation. Moves all ext x4 A/P Problem List: (1) Cholelithiasis ICD Code: K80.20 Status: Acute Assessment and Plan 51 y/o female with Symptomatic cholelithiasis; possible passed CBD stone; CBD dilatation - general surgery following - For lap honorio today - NPO status - IV fluid hydration. Pain control Transaminitis - Likely related to past CBD stone - enzymes still elevated. likely lag. Hepatitis profile pending. - Recheck labs in a.m. and follow results Hypocalcemia - Initial protein corrected calcium 6.8 - Calcium replaced IV. Stable. - Recheck labs in a.m. and replace as needed DVT prophylaxis - Klarissa/Chrissy Roy MD Nov 04, 2016 15:02
[2016-11-04 16:00] VITALS: BP 148/76; PULSE 73; RESP 17; TEMP 97; O2SAT 90
--- NOTE | 2016-11-04 17:09 | PD.CONS ---
HPI History of Present Illness This is a 51 year old female patient who reports that she has been having intermittent "attacks" with abdominal pain and nausea. She reports that on Tuesday, she had the sudden onset of severe sharp epigastric pain that radiated to her RUQ and around to her back. It was quite severe and she thought she was having a heart attack and therefore went to the ER. She reports imaging was done and she was told that she had cholelithiasis and that she needed to follow up with general surgery. Her symptoms improved and she was discharged home. She then had another attack after eating a boiled egg on Tuesday. She had the same pain with nausea, but no vomiting. She felt bloated. She denies any fever or chills. She did not notice that she was jaundiced, but on arrival to the ER she was told that she was jaundiced. She was noted to have elevated LFTs in an obstructive pattern. CT scan abdomen and pelvis (11/03/16)-----> No acute disease. MRCP (11/03/16)-----> 1. Cholelithiasis without active gallbladder inflammation. 2. Common bile duct is at the upper limits of normal in caliber measuring 7 mm. There were no intraluminal filling defects. 3. Hepatic steatosis 4. 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 There are no findings indicating that this would be symptomatic. 5. No other significant abnormalities. Gall Bladder Ultrasound (11/03/16)---> 1. Cholelithiasis. 2. Mild hepatic steatosis. GI was consulted for further evaluation to see if ERCP would be indicated. The patient continues to have elevated LFTs, but states her abdominal pain has resolved. She still has mild RUQ tenderness, but the pain is much improved. She does not drink ETOH and has no hx of known liver disease. 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 Review of Systems Constitutional: COMPLAINS OF: Fatigue, DENIES: Fever, Weight loss, Chills, Change in appetite Respiratory: DENIES: Cough Cardiovascular: DENIES: Chest pain Gastrointestinal: COMPLAINS OF: Abdominal pain, Nausea, Swelling of Abdomen, DENIES: Black stools, Bloody stools, Constipation, Diarrhea, Vomiting, Heartburn Musculoskeletal: COMPLAINS OF: Back pain Integumentary: COMPLAINS OF: Jaundice Neurologic: COMPLAINS OF: Headache Psychiatric: DENIES: Confusion GI Exam Vitals I&O Vital Signs Date Time Temp Pulse Resp B/P Pulse Ox O2 Delivery O2 Flow Rate FiO2 11/04/16 16:00 97.0 73 17 148/76 90 11/04/16 12:00 96.7 62 17 141/84 96 11/04/16 08:00 97.5 76 17 116/75 93 11/04/16 00:00 97.9 91 18 138/83 93 11/03/16 20:00 97.0 79 18 147/89 93 I/O 11/03/16 11/03/16 11/03/16 11/04/16 11/04/16 11/04/16 07:00 15:00 23:00 07:00 15:00 23:00 Intake Total 575 ml 926 ml 0 ml Balance 575 ml 926 ml 0 ml Intake Oral 0 ml IV Total 575 ml 926 ml # Voids 2 2 0 3 # Bowel Movements 0 Imaging Last Impressions Gall Bladder Ultrasound 11/03/16 0000 Signed Impressions: Service Date/Time: Thursday, November 03, 2016 02:31 - CONCLUSION: 1. Cholelithiasis. 2. Mild hepatic steatosis. James Nguyễn MD Cholangiopancreatography MRI 11/03/16 0000 Signed Impressions: Service Date/Time: Thursday, November 03, 2016 08:20 - CONCLUSION: 1. Cholelithiasis without active gallbladder inflammation. 2. Common bile duct is at the upper limits of normal in caliber measuring 7 mm. There were no intraluminal filling defects. 3. Hepatic steatosis 4. 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 There are no findings indicating that this would be symptomatic. 5. No other significant abnormalities. Ulises Gomez MD Abdomen/Pelvis CT 11/03/16 0000 Signed Impressions: Service Date/Time: Thursday, November 03, 2016 01:18 - CONCLUSION: No acute disease. James Nguyễn MD Laboratory Test 11/04/16 05:03 White Blood Count 6.1 TH/MM3 Red Blood Count 4.30 MIL/MM3 Hemoglobin 12.6 GM/DL Hematocrit 37.1 % Mean Corpuscular Volume 86.2 FL Mean Corpuscular Hemoglobin 29.2 PG Mean Corpuscular Hemoglobin 33.9 % Concent Red Cell Distribution Width 13.8 % Platelet Count 194 TH/MM3 Mean Platelet Volume 8.7 FL Neutrophils (%) (Auto) 63.6 % Lymphocytes (%) (Auto) 26.6 % Monocytes (%) (Auto) 7.1 % Eosinophils (%) (Auto) 2.2 % Basophils (%) (Auto) 0.5 % Neutrophils # (Auto) 3.9 TH/MM3 Lymphocytes # (Auto) 1.6 TH/MM3 Monocytes # (Auto) 0.4 TH/MM3 Eosinophils # (Auto) 0.1 TH/MM3 Basophils # (Auto) 0.0 TH/MM3 CBC Comment DIFF FINAL Differential Comment Sodium Level 139 MEQ/L Potassium Level 3.9 MEQ/L Chloride Level 107 MEQ/L Carbon Dioxide Level 24.9 MEQ/L Anion Gap 7 MEQ/L Blood Urea Nitrogen 7 MG/DL Creatinine 0.61 MG/DL Estimat Glomerular Filtration 103 ML/MIN Rate Random Glucose 103 MG/DL Calcium Level 7.8 MG/DL Total Bilirubin 4.0 MG/DL Aspartate Amino Transf 301 U/L (AST/SGOT) Alanine Aminotransferase 619 U/L (ALT/SGPT) Alkaline Phosphatase 157 U/L Total Protein 6.5 GM/DL Albumin 3.0 GM/DL Physical Examination HEENT: Normocephalic; atraumatic; + jaundice. CHEST: CTA CARDIAC: RRR ABDOMEN: Soft, nondistended, mild RUQ tenderness; no hepatosplenomegaly; bowel sounds are present in all four quadrants. EXTREMITIES: No clubbing, cyanosis, or edema. SKIN: Normal; no rash; no jaundice. LANGUAGE SPECIALIST: No focal deficits; alert and oriented times three. Assessment and Plan Plan ASSESSMENT: - Cholelithiasis with elevated LFTs. Pt has been having intermittent "attacks" with epigastric pain radiating to RUQ and back with nausea/bloating. Noted to have elevated LFTs. CT scan abdomen and pelvis (11/03/16)-----> No acute disease. MRCP (11/03/16)--- --> 1. Cholelithiasis without active gallbladder inflammation. 2. Common bile duct is at the upper limits of normal in caliber measuring 7 mm. There were no intraluminal filling defects. 3. Hepatic steatosis 4. 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 There are no findings indicating that this would be symptomatic. 5. No other significant abnormalities. Gall Bladder Ultrasound (11/03/16)---> 1. Cholelithiasis. 2. Mild hepatic steatosis. GI was consulted for further evaluation to see if ERCP would be indicated. Prior hx of ETOH abuse, but no etoh x 10 years. LFTs remain elevated, T. Bili 4.0, AST 301, ALT 619, Alk Phsoph 157. States pain is much improved, still mild RUQ tenderness, but not anything like it was on Tuesday. Suspect she passed a stone and the LFTs are lagging behind. Okay for cholecystectomy from GI standpoint, consider IOC. PLAN: - NPO - PPI - IVF - Await hepatitis profile - GS following - Okay for Laparoscopic cholecystectomy from GI standpoint - Suspect she most likely passed a stone from her CBD and her LFTs are lagging behind - Pt seen and examined by Dr. Soares and myself and this note is written on his behalf Hazel Peng Nov 04, 2016 17:09
[2016-11-04] MEDS ORDERED: BUPIVACAINE/EPINEPHRINE 0.25% 50 ML VIAL ONE (18:31)
[2016-11-04] MEDS ORDERED: SUGAMMADEX SODIUM 200 MG/2 ML VIAL IV PUSH ONE ×2 (19:07)
[2016-11-04] MEDS ORDERED: DICLOFENAC SODIUM 37.5 MG/ML VIAL IV PUSH ONE (19:07)
[2016-11-04] MEDS ORDERED: ceFAZolin INJ 1,000 MG VIAL IV ONE (19:32)
[2016-11-04] MEDS ORDERED: IOHEXOL 350 MG/ML 50 ML BTL (for RAD DIAG) ONE (19:34)
--- NOTE | 2016-11-04 20:42 | HHI.PR ---
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
[2016-11-04] MEDS ORDERED: MIDAZOLAM HCL 2 MG/2 ML VIAL ONE (21:08)
[2016-11-04] MEDS ORDERED: fentaNYL CITRATE 250 MCG/5 ML AMP ONE (21:09)
[2016-11-04] MEDS ORDERED: DO NOT ADM ANY ANTICOAGULANT DRUGS PRN (21:30)
[2016-11-04] MEDS ORDERED: *morphine SULFATE 8 MG/ML PERIprocedure ONLY ONE (21:38)
[2016-11-04] MEDS: ONDANSETRON HCL 4 MG/2 ML VIAL IV PUSH PRN (23:22)
[2016-11-05] VITALS: BP 135/85; PULSE 103; RESP 16; TEMP 97.3; O2SAT 93
[2016-11-05] MEDS ORDERED: ACETAMINOPHEN/HYDROcodone 325 MG/5 MG TAB PO ONE (03:15)
[2016-11-05 04:00] VITALS: BP 143/89; PULSE 89; RESP 16; TEMP 97.8; O2SAT 96
[2016-11-05 07:18] LABS: AUTOMATED NEUTROPHIL # 9.8 TH/MM3 (1.8-7.7); BASOPHIL % 0.2 % (0.0-2.0); HEMATOCRIT 37.1 % (35.0-46.0); HEMO FLAGS DIFF FINAL; LYMPH % 6.9 % (9.0-44.0); LYMPHOCYTE # 0.8 TH/MM3 (1.0-4.8); MEAN CELL VOLUME 87.7 FL (80.0-100.0); MEAN CORPUSCULAR HEMOGLOBIN 29.2 PG (27.0-34.0); MEAN CORPUSCULAR HGB CONC 33.3 % (32.0-36.0); NEUT % 88.9 % (16.0-70.0); PLATELET COUNT 191 TH/MM3 (150-450); RED BLOOD COUNT 4.23 MIL/MM3 (4.00-5.30)
[2016-11-05 07:53] LABS: ANION GAP 11 MEQ/L (5-15); AST (GOT) 431 U/L (15-37); BICARBONATE 23.3 MEQ/L (21.0-32.0); BLOOD UREA NITROGEN 10 MG/DL (7-18); CHLORIDE 103 MEQ/L (98-107); GLOMERULAR FILTRATION RATE 98 ML/MIN (>89); POTASSIUM 3.6 MEQ/L (3.5-5.1); SODIUM (NA) 137 MEQ/L (136-145)
[2016-11-05 07:54] LABS: ALT (GPT) 761 U/L (10-53)
[2016-11-05 07:56] LABS: ALKALINE PHOSPHATASE 158 U/L (45-117); TOTAL BILIRUBIN ADULT 3.6 MG/DL (0.2-1.0)
[2016-11-05 08:00] VITALS: BP 134/82; PULSE 88; RESP 17; TEMP 95.7; O2SAT 96
[2016-11-05] MEDS: KETOROLAC TROMETHAMINE 30 MG/ML (IVP) VIAL IV PUSH PRN ×3 (08:14→23:20)
[2016-11-05] MEDS: SODIUM CHLORIDE 0.9% FLUSH 10 ML FLUSH IV FLUSH SCH ×2 (08:15→21:00)
[2016-11-05] MEDS: SODIUM CHLOR 0.9% 1000 ML INJ 1,000 ML IV SCH ×2 (08:18→14:32)
[2016-11-05 12:00] VITALS: BP 137/73; PULSE 73; RESP 17; TEMP 97.4; O2SAT 94
--- NOTE | 2016-11-05 12:42 | HHI.GIFU ---
Subjective Remarks Had laparoscopic cholecystectomy last night- unable to have IOC secondary to fatty liver/gb fibrosis. C/O more RUQ discomfort today. Taking clear liquids. LFTs remain elevated. D/W patient further evaluation/tx with possible ERCP with possible sphincterotomy/stent placement. 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 Explained to patient that she will be a "to follow" case and that her case may be postponed until tomorrow, depending on the OR schedule. She verbalizes understanding. Objective Vitals I&O Vital Signs Date Time Temp Pulse Resp B/P Pulse Ox O2 Delivery O2 Flow Rate FiO2 11/05/16 08:00 95.7 88 17 134/82 96 11/05/16 04:00 97.8 89 16 143/89 96 11/05/16 00:00 97.3 103 16 135/85 93 11/04/16 21:45 89 11 159/79 94 Nasal Cannula 1 11/04/16 21:30 89 11 150/75 94 Nasal Cannula 1 11/04/16 21:15 89 13 146/70 92 Nasal Cannula 1 11/04/16 21:00 97.7 99 16 138/80 97 Nasal Cannula 3 11/04/16 16:00 97.0 73 17 148/76 90 I/O 11/04/16 11/04/16 11/04/16 11/05/16 11/05/16 11/05/16 07:00 15:00 23:00 07:00 15:00 23:00 Intake Total 926 ml 0 ml 1000 ml 705 ml Output Total 100 ml 400 ml Balance 926 ml 0 ml 900 ml 305 ml Intake Oral 0 ml IV Total 926 ml 705 ml Other 1000 ml Output Urine Total 400 ml Estimated Blood Loss 100 ml # Voids 0 3 1 1 # Bowel Movements 0 Laboratory Laboratory Tests Test 11/04/16 11/05/16 13:57 03:30 Hepatitis A IgM Antibody NEGATIVE Hepatitis B Surface Antigen NEGATIVE Hepatitis B Core IgM Antibody NEGATIVE Hepatitis C Antibody NEGATIVE White Blood Count 11.0 Red Blood Count 4.23 Hemoglobin 12.4 Hematocrit 37.1 Mean Corpuscular Volume 87.7 Mean Corpuscular Hemoglobin 29.2 Mean Corpuscular Hemoglobin 33.3 Concent Red Cell Distribution Width 14.0 Platelet Count 191 Mean Platelet Volume 9.1 Neutrophils (%) (Auto) 88.9 Lymphocytes (%) (Auto) 6.9 Monocytes (%) (Auto) 4.0 Eosinophils (%) (Auto) 0.0 Basophils (%) (Auto) 0.2 Neutrophils # (Auto) 9.8 Lymphocytes # (Auto) 0.8 Monocytes # (Auto) 0.4 Eosinophils # (Auto) 0.0 Basophils # (Auto) 0.0 CBC Comment DIFF FINAL Differential Comment Sodium Level 137 Potassium Level 3.6 Chloride Level 103 Carbon Dioxide Level 23.3 Anion Gap 11 Blood Urea Nitrogen 10 Creatinine 0.64 Estimat Glomerular Filtration 98 Rate Random Glucose 116 Calcium Level 8.1 Total Bilirubin 3.6 Aspartate Amino Transf 431 (AST/SGOT) Alanine Aminotransferase 761 (ALT/SGPT) Alkaline Phosphatase 158 Total Protein 7.0 Albumin 3.3 Lipase 69 Imaging Last Impressions Gall Bladder Ultrasound 11/03/16 0000 Signed Impressions: Service Date/Time: Thursday, November 03, 2016 02:31 - CONCLUSION: 1. Cholelithiasis. 2. Mild hepatic steatosis. James Nguyễn MD Cholangiopancreatography MRI 11/03/16 0000 Signed Impressions: Service Date/Time: Thursday, November 03, 2016 08:20 - CONCLUSION: 1. Cholelithiasis without active gallbladder inflammation. 2. Common bile duct is at the upper limits of normal in caliber measuring 7 mm. There were no intraluminal filling defects. 3. Hepatic steatosis 4. 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 There are no findings indicating that this would be symptomatic. 5. No other significant abnormalities. Ulises Gomez MD Abdomen/Pelvis CT 11/03/16 0000 Signed Impressions: Service Date/Time: Thursday, November 03, 2016 01:18 - CONCLUSION: No acute disease. James Nguyễn MD Physical Exam HEENT: Normocephalic; atraumatic; mild jaundice. CHEST: CTA CARDIAC: RRR ABDOMEN: Soft, nondistended, RUQ tenderness; no hepatosplenomegaly; bowel sounds are present in all four quadrants. EXTREMITIES: No clubbing, cyanosis, or edema. SKIN: Normal; no rash; very mild jaundice. BANKRUPTCY MANAGER: No focal deficits; alert and oriented times three. Assessment and Plan Plan ASSESSMENT: - Cholelithiasis with elevated LFTs. Pt has been having intermittent "attacks" with epigastric pain radiating to RUQ and back with nausea/bloating. Noted to have elevated LFTs. CT scan abdomen and pelvis (11/03/16)-----> No acute disease. MRCP (11/03/16)--- --> 1. Cholelithiasis without active gallbladder inflammation. 2. Common bile duct is at the upper limits of normal in caliber measuring 7 mm. There were no intraluminal filling defects. 3. Hepatic steatosis 4. 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 There are no findings indicating that this would be symptomatic. 5. No other significant abnormalities. Gall Bladder Ultrasound (11/03/16)---> 1. Cholelithiasis. 2. Mild hepatic steatosis. GI was consulted for further evaluation to see if ERCP would be indicated. Prior hx of ETOH abuse, but no etoh x 10 years. S/P Laparoscopic cholecystectomy POD #1. IOC was not able to be done secondary to fatty liver and gallbladder fibrosis. LFTs remain elevated today with T. Bili 3.6, AST 431, ALT 761, Alk Phosph 158. She is having more RUQ discomfort today. D/W patient and aunt possible ERCP with sphincterotomy/possible stent and she would like to proceed. She is hoping this can be done today if possible. Will also get liver workup- hepatitis profile negative. PLAN: - ERCP with possible sphincterotomy, possible stent placement (today vs. tomorrow) - Obtain consents - NPO - PPI - IVF - AFP - DANII, ASMA, AMA - Ferritin, Iron Saturation - Ceruloplasmin, Alpha 1 antitrypsin - LFT in am - GS following - Further recommendations to follow based on results of above - Pt seen and examined by Dr. Soares and myself and this note is written on his behalf Hazel Peng Nov 05, 2016 12:42
--- NOTE | 2016-11-05 12:58 | HHI.PR ---
Subjective Remarks Patient complained of worsening right upper quadrant pain. Seen by GI. Plan for ERCP today if possible. Liver enzymes still elevated Objective Vitals Vital Signs Date Time Temp Pulse Resp B/P Pulse Ox O2 Delivery O2 Flow Rate FiO2 11/05/16 12:00 97.4 73 17 137/73 94 11/05/16 08:00 95.7 88 17 134/82 96 11/05/16 04:00 97.8 89 16 143/89 96 11/05/16 00:00 97.3 103 16 135/85 93 11/04/16 21:45 89 11 159/79 94 Nasal Cannula 1 11/04/16 21:30 89 11 150/75 94 Nasal Cannula 1 11/04/16 21:15 89 13 146/70 92 Nasal Cannula 1 11/04/16 21:00 97.7 99 16 138/80 97 Nasal Cannula 3 11/04/16 16:00 97.0 73 17 148/76 90 I/O 11/04/16 11/04/16 11/04/16 11/05/16 11/05/16 11/05/16 07:00 15:00 23:00 07:00 15:00 23:00 Intake Total 926 ml 0 ml 1000 ml 705 ml Output Total 100 ml 400 ml Balance 926 ml 0 ml 900 ml 305 ml Intake Oral 0 ml IV Total 926 ml 705 ml Other 1000 ml Output Urine Total 400 ml Estimated Blood Loss 100 ml # Voids 0 3 1 1 # Bowel Movements 0 Result Diagram: 11/05/16 0330 11/05/16 0330 Objective Remarks GENERAL: This is a well-nourished, well-developed patient, in no apparent distress. CARDIOVASCULAR: Regular rate and rhythm without murmurs, gallops, or rubs. RESPIRATORY: Clear to auscultation. Breath sounds equal bilaterally. No wheezes , rales, or rhonchi. GASTROINTESTINAL: Abdomen soft, tender to palpation over the right upper quadrant. Normal active bowel sounds MUSCULOSKELETAL: Extremities without clubbing, cyanosis, or edema. NEURO: Alert & Oriented x4 to person, place, time, situation. Moves all ext x4 A/P Problem List: (1) Cholelithiasis ICD Code: K80.20 Status: Acute Assessment and Plan 51 y/o female with Symptomatic cholelithiasis; possible passed CBD stone; CBD dilatation - general surgery following -Status post laparoscopic cholecystectomy on 11/04/16, unable to have IOC secondary to fatty liver/gb fibrosis. -GI planning for ERCP with possible sphincterotomy and stent placement - IV fluid hydration. Pain control Transaminitis - Likely related to past CBD stone - enzymes still elevated. likely lag. Hepatitis profile negative. - Recheck labs in a.m. and follow results Hypocalcemia - Initial protein corrected calcium 6.8 - Calcium replaced IV. Stable. - Recheck labs in a.m. and replace as needed DVT prophylaxis - HUANs/Chrissy Roy MD Nov 05, 2016 12:58
[2016-11-05] MEDS: ACETAMINOPHEN/HYDROcodone 325 MG/5 MG TAB PO PRN ×2 (14:33→21:19)
[2016-11-05 16:00] VITALS: BP 136/74; PULSE 83; RESP 17; TEMP 97.9; O2SAT 95
[2016-11-05 16:55] LABS: TRANSFERRIN IRON PROFILE 314 MG/DL (200-360)
[2016-11-05 16:58] LABS: FERRITIN 231 NG/ML (8-252)
--- NOTE | 2016-11-05 17:48 | HHI.PR ---
Subjective Subjective Notes no acute issues, still with pain, lft up today, t bili 3.6 Objective Vitals/I&O Vital Signs Date Time Temp Pulse Resp B/P Pulse Ox O2 Delivery O2 Flow Rate FiO2 11/05/16 16:00 97.9 83 17 136/74 95 11/04/16 21:45 Nasal Cannula 1 Labs Laboratory Tests Test 11/05/16 03:30 White Blood Count 11.0 Red Blood Count 4.23 Hemoglobin 12.4 Hematocrit 37.1 Mean Corpuscular Volume 87.7 Mean Corpuscular Hemoglobin 29.2 Mean Corpuscular Hemoglobin 33.3 Concent Red Cell Distribution Width 14.0 Platelet Count 191 Mean Platelet Volume 9.1 Neutrophils (%) (Auto) 88.9 Lymphocytes (%) (Auto) 6.9 Monocytes (%) (Auto) 4.0 Eosinophils (%) (Auto) 0.0 Basophils (%) (Auto) 0.2 Neutrophils # (Auto) 9.8 Lymphocytes # (Auto) 0.8 Monocytes # (Auto) 0.4 Eosinophils # (Auto) 0.0 Basophils # (Auto) 0.0 CBC Comment DIFF FINAL Differential Comment Sodium Level 137 Potassium Level 3.6 Chloride Level 103 Carbon Dioxide Level 23.3 Anion Gap 11 Blood Urea Nitrogen 10 Creatinine 0.64 Estimat Glomerular Filtration 98 Rate Random Glucose 116 Calcium Level 8.1 Iron Level 76 Total Iron Binding Capacity 440 Percent Iron Saturation 17.3 Ferritin 231 Total Bilirubin 3.6 Aspartate Amino Transf 431 (AST/SGOT) Alanine Aminotransferase 761 (ALT/SGPT) Alkaline Phosphatase 158 Total Protein 7.0 Albumin 3.3 Lipase 69 Radiology Last 48 hours Impressions Gall Bladder Ultrasound 11/03/16 0000 Signed Impressions: Service Date/Time: Thursday, November 03, 2016 02:31 - CONCLUSION: 1. Cholelithiasis. 2. Mild hepatic steatosis. James Nguyễn MD Cholangiopancreatography MRI 11/03/16 0000 Signed Impressions: Service Date/Time: Thursday, November 03, 2016 08:20 - CONCLUSION: 1. Cholelithiasis without active gallbladder inflammation. 2. Common bile duct is at the upper limits of normal in caliber measuring 7 mm. There were no intraluminal filling defects. 3. Hepatic steatosis 4. 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 There are no findings indicating that this would be symptomatic. 5. No other significant abnormalities. Ulises Gomez MD Abdomen/Pelvis CT 11/03/16 0000 Signed Impressions: Service Date/Time: Thursday, November 03, 2016 01:18 - CONCLUSION: No acute disease. James Nguyễn MD Cardiovascular: Regular Lungs: Clear Abdomen: Other (incisional tenderness, incisions c/d/i) A/P Assessment and Plan POD 1 lap honorio, unable to complete IOC- elevated lfts and t bili PLAN Await gi recs, if no intervention today will advance diet slowly, if ercp today will keep npo pain control ivf recheck labs Tod Waters MD Nov 05, 2016 17:47
[2016-11-05] MEDS ORDERED: PROPOFOL 200 MG/20 ML AMP IV ONE (18:14)
[2016-11-05] MEDS ORDERED: DO NOT ADM ANY ANTICOAGULANT DRUGS PRN (18:51)
--- NOTE | 2016-11-05 18:58 | PD.PROCEDR ---
GI Procedure REFERRING PHYSICIAN Dr. Bright PROCEDURE PERFORMED ERCP with sphincterotomy and balloon extraction INDICATION FOR PROCEDURE Elevated liver function tests with known cholelithiasis PROCEDURE: The procedure, risks and benefits were discussed with Ms. Mancia and informed consent was obtained. Anesthesia sedated her with Diprivan. She was placed in the left lateral decubitus position. ERCP: Patient was placed in a prone position. The Pentax videoscope was introduced through the oropharynx and advanced to the second portion of the duodenum where the ampula was identified. FINDINGS: The ERCP scope was advanced to the second portion of the duodenum the ampulla appeared to be bulging with an ulcer on it probably from a stone impaction at the ampullary level we were able to obtain easy cannulation of the common bile duct there appeared to be a filling defect in the distal portion but otherwise it looked unremarkable no bile leak was noted we were able to obtain deep cannulation a generous sphincterotomy was performed then using the 15 mm balloon we were able to wipe clean the common bile duct and a stone was noted to be coming out into the duodenum and obstructive cholangiogram was unremarkable for any further filling defects ESTIMATED BLOOD LOSS: Minimal SPECIMENS REMOVED: None COMPLICATIONS: None IMPRESSION: Ampullary bulging with ampullary ulcer Choledocholithiasis PLAN: Clear liquid diet Monitor lab Supportive care Probable discharge tomorrow from a GI perspective Chris Chandra MD Nov 05, 2016 18:58
[2016-11-05] MEDS ORDERED: fentaNYL CITRATE 250 MCG/5 ML AMP ONE (19:00)
--- NOTE | 2016-11-05 19:38 | RADRPT ---
EXAM DATE/TIME: 11/05/2016 18:22 [facility] COMPARISON: No previous studies available for comparison. INDICATIONS : Elevated liver enzymes and cholelithiasis. FLUORO TIME: .56 minutes IMAGE COUNT: 7 CONTRAST: Instilled by Ordering Physician MEDICAL HISTORY : None. SURGICAL HISTORY : Hysterectomy. Nephrectomy, right. ENCOUNTER: Subsequent ACUITY: 1 week PAIN SCORE: Non-responsive. LOCATION: Abdomen. FINDINGS: An ERCP was performed by the ordering physician. The images demonstrate cannulation of the common bile duct with injection of contrast. No definite fi lling defects identified. CONCLUSION: ERCP as above. Salvador Rapp MD on November 05, 2016 at 19:36 Board Certified Radiologist. This report was verified electronically.
[2016-11-05 20:00] VITALS: BP 140/93; PULSE 78; RESP 16; TEMP 96.8; O2SAT 98
[2016-11-06] VITALS: BP 120/69; PULSE 67; RESP 16; TEMP 96.3; O2SAT 98
[2016-11-06] MEDS: SODIUM CHLOR 0.9% 1000 ML INJ 1,000 ML IV SCH ×2 (00:27→09:41)
[2016-11-06] MEDS: ACETAMINOPHEN/HYDROcodone 325 MG/5 MG TAB PO PRN (04:56)
[2016-11-06 07:22] LABS: HEMATOCRIT 35.8 % (35.0-46.0); MEAN CELL VOLUME 87.2 FL (80.0-100.0); MEAN CORPUSCULAR HEMOGLOBIN 29.1 PG (27.0-34.0); MEAN CORPUSCULAR HGB CONC 33.4 % (32.0-36.0); PLATELET COUNT 160 TH/MM3 (150-450); RED CELL DISTRIBUTION WIDTH 14.2 % (11.6-17.2); REVIEW FLAG FINAL; WHITE BLOOD COUNT 6.4 TH/MM3 (4.0-11.0)
[2016-11-06 07:50] LABS: BICARBONATE 27.5 MEQ/L (21.0-32.0); POTASSIUM 3.3 MEQ/L (3.5-5.1)
[2016-11-06 07:52] LABS: INDIRECT BILIRUBIN 0.9 MG/DL (0.0-0.8); TOTAL BILIRUBIN ADULT 3.9 MG/DL (0.2-1.0)
[2016-11-06 08:00] VITALS: BP 131/78; PULSE 77; RESP 18; TEMP 97.4; O2SAT 94
[2016-11-06] MEDS: SODIUM CHLORIDE 0.9% FLUSH 10 ML FLUSH IV FLUSH SCH (09:00)
[2016-11-06 09:20] VITALS: O2SAT 99
--- NOTE | 2016-11-06 10:56 | MP ---
cc: BOB WATERS MD DATE OF SURGERY: 11/04/2016. PREOPERATIVE DIAGNOSIS: Acute cholecystitis with cholelithiasis and likely passage of common bile duct stones. POSTOPERATIVE DIAGNOSIS: Acute cholecystitis with cholelithiasis and likely passage of common bile duct stones. OPERATIVE PROCEDURE PERFORMED: Laparoscopic cholecystectomy SURGEON: Dr. Bob Waters. SLICE PLUG CUTTER OPERATOR: See OR sheet. ANESTHESIA GETA. IV FLUIDS: 300 ML. ESTIMATED BLOOD LOSS: 25 cc. DRAINS: None. COMPLICATIONS: None. WOUND CLASSIFICATION: Clean / contaminated. SPECIMENS: Gallbladder. FINDINGS: Extremely fatty liver, difficult view due to body habitus. 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 INDICATIONS FOR THE PROCEDURE: The patient is a 51-year-old female who presents with complaints of right upper quadrant abdominal pain. She was noted to have multiple attacks with abdominal pain and noted a sudden severe attack of sharp epigastric and right upper quadrant pain. She was seen in the emergency department and further evaluation including lab work showing a bilirubin of 3.2, AST and ALT of 204 and 489, alkaline phosphatase 130. She had further workup including a CT scan that was noncontributory. MRCP showed cholelithiasis with active gallbladder inflammation, common bile duct upper limit of normal. No intraluminal filling defects. Hepatic steatosis. GI was consulted for further evaluation and recommended against ERCP and recommended laparoscopic cholecystectomy with intraoperative cholangiogram. DESCRIPTION OF THE PROCEDURE IN DETAIL: The patient was taken to the operating room suite and placed in the supine position. She was prepped and draped in the usual sterile fashion after induction with general endotracheal anesthesia. A brief time out was done stating the correct patient, procedure and surgical site and we were all in agreement with this. Attention was directed to the umbilicus where a stab juliane incision was made. This was done after injection of local anesthetic. Veress needle placed and intra-abdominal placement confirmed with saline drop test. Abdomen insufflated to 50 mm pneumoperitoneum. A 5-mm scope placed. On cursory inspection, no evidence of injury. Small adhesion to the umbilicus. Three other ports placed; one 12 mm epigastric followed by two 5 mm right subcostal ports. The patient was placed in reverse Trendelenburg and planed to the left. Gallbladder was identified. There were a couple of adhesions taken off the gallbladder. The gallbladder was noted to be somewhat thick, edematous and there was fibrosis. The patient had an extremely large liver and a tight intraabdominal space. Difficulty with gallbladder retraction however this was able to be done. The cystic artery was able to be dissected out in the usual fashion. Two clips were placed proximal and distal. This was clipped with Endoshears. The cystic duct was a little bit more difficult to identify. A dome-down approach was therefore undertaken with a hook Bovie electrocautery. The gallbladder was removed in a retrograde fashion and mobilized from the hepatic fossa. After this, two #0 PDS Endoloops were placed proximal on the cystic duct and one was placed distally. Endoshears were used to clip the sutures and transect the cystic duct. The gallbladder was placed into an EndoCatch bag and this was removed from the abdomen. Minimal bleeding noted from the gallbladder fossa. A small piece of Snow anticoagulant was placed with no evidence of further bleeding. The right upper quadrant was suctioned and irrigated until the effluent was clear. The gallbladder was removed from the epigastric port and flattened. The pneumoperitoneum was removed. Trocars were removed. #0 Vicryl was placed to the fascia and 4-0 Monocryl subcuticular sutures were placed at all incision sites. Sterile dressings were then placed. All lap and instrument counts were correct at the end of the procedure. The patient tolerated the procedure well. There were no intraoperative complications. The patient was extubated and taken stable to the post-anesthesia care unit. MD CHARLES Enamorado/THOR /8:42 PM /10:35 AM
--- NOTE | 2016-11-06 11:29 | HHI.DS ---
Discharge Summary Admission Date Nov 03, 2016 at 02:48 Discharge Date: Nov 06, 2016 Admitting Diagnosis acute hepatitis, hyperbilirubinemia, abdominal pain, hypokalemia (1) Cholelithiasis ICD Code: K80.20 Procedures Laparoscopic cholecystectomy ERCP with sphincterotomy Brief History - From Admission History of present illness from the admitting physician The patient was seen 10/29/2016 for chest pain and abdominal pain in the emergency room here at [facility]. She was found to have cholelithiasis without cholecystitis and was discharged home. The patient reports she had 3 "gallbladder attacks" prior to that ER visit. The patient reports right upper abdominal pain, nausea, kirt-colored stool, diarrhea, and dark urine. Denies vomiting. Symptoms started on Tuesday. Denies fevers. Last time she was here she was told she had gallstones. Denies recent antibiotics. Chest pain, shortness of breath. Gallbladder/abdominal ultrasound shows cholelithiasis with negative sonographic Valdes's sign and mild hepatic steatosis. Abdomen/pelvis CT demonstrates no acute disease. . CBC/BMP: 11/06/16 0522 11/06/16 0522 Significant Findings Laboratory Tests Test 11/03/16 11/04/16 11/05/16 11/06/16 16:03 05:03 03:30 05:22 Monocytes (%) (Auto) 8.2 % (0.0-8.0) Total Bilirubin 4.3 MG/DL 4.0 MG/DL 3.6 MG/DL 3.9 MG/DL (0.2-1.0) (0.2-1.0) (0.2-1.0) (0.2-1.0) Aspartate Amino Transf 269 U/L (15-37) 301 U/L (15-37) 431 U/L (15-37) 343 U/L ( 15-37) (AST/SGOT) Alanine Aminotransferase 618 U/L (10-53) 619 U/L (10-53) 761 U/L (10-53) 708 U/ L (10-53) (ALT/SGPT) Alkaline Phosphatase 157 U/L 157 U/L 158 U/L 162 U/L (45-117) (45-117) (45-117) (45-117) Albumin 3.2 GM/DL 3.0 GM/DL 3.3 GM/DL 2.9 GM/DL (3.4-5.0) (3.4-5.0) (3.4-5.0) (3.4-5.0) Calcium Level 7.8 MG/DL 8.1 MG/DL 8.1 MG/DL (8.5-10.1) (8.5-10.1) (8.5-10.1) Neutrophils (%) (Auto) 88.9 % (16.0-70.0) Lymphocytes (%) (Auto) 6.9 % (9.0-44.0) Neutrophils # (Auto) 9.8 TH/MM3 (1.8-7.7) Lymphocytes # (Auto) 0.8 TH/MM3 (1.0-4.8) Random Glucose 116 MG/DL (74-106) Percent Iron Saturation 17.3 % (20-50) Lipase 69 U/L (73-393) Potassium Level 3.3 MEQ/L (3.5-5.1) Direct Bilirubin 3.0 MG/DL (0.0-0.2) Indirect Bilirubin 0.9 MG/DL (0.0-0.8) Imaging Last Impressions GI Procedure 11/05/16 0000 Signed Impressions: Service Date/Time: Saturday, November 05, 2016 18:22 - CONCLUSION: ERCP as above. Salvador Rapp MD Gall Bladder Ultrasound 11/03/16 0000 Signed Impressions: Service Date/Time: Thursday, November 03, 2016 02:31 - CONCLUSION: 1. Cholelithiasis. 2. Mild hepatic steatosis. James Nguyễn MD Cholangiopancreatography MRI 11/03/16 0000 Signed Impressions: Service Date/Time: Thursday, November 03, 2016 08:20 - CONCLUSION: 1. Cholelithiasis without active gallbladder inflammation. 2. Common bile duct is at the upper limits of normal in caliber measuring 7 mm. There were no intraluminal filling defects. 3. Hepatic steatosis 4. 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 There are no findings indicating that this would be symptomatic. 5. No other significant abnormalities. Ulises Gomez MD Abdomen/Pelvis CT 11/03/16 0000 Signed Impressions: Service Date/Time: Thursday, November 03, 2016 01:18 - CONCLUSION: No acute disease. James Nguyễn MD PE at Discharge GENERAL: This is a well-nourished, well-developed patient, in no apparent distress. CARDIOVASCULAR: Regular rate and rhythm without murmurs, gallops, or rubs. RESPIRATORY: Clear to auscultation. Breath sounds equal bilaterally. No wheezes , rales, or rhonchi. GASTROINTESTINAL: Abdomen soft, tender to palpation over the right upper quadrant. Normal active bowel sounds MUSCULOSKELETAL: Extremities without clubbing, cyanosis, or edema. NEURO: Alert & Oriented x4 to person, place, time, situation. Moves all ext x4 Pt update on day of discharge Patient reports she is feeling on percent better. She wants to eat and requested to go home today. No fevers or chills. No nausea or vomiting. Hospital Course 51 y/o female admitted with symptomatic cholelithiasis. Evaluation and treatment course detailed below: Symptomatic cholelithiasis; possible passed CBD stone; CBD dilatation - general surgery followed the patient. She underwent laparoscopic cholecystectomy on 11/04/16, unable to have IOC secondary to fatty liver/gb fibrosis. -Patient followed by GI and underwent ERCP which found choledocholithiasis, ulceration of the ampulla, status post sphincterotomy. A stone passed to the duodenum. Symptoms significantly improved. She is discharged home to follow- up outpatient. Transaminitis - Likely related to past CBD stone. Enzymes started to trend down. She is advised to follow-up outpatient with GI for pending serologies. Pt Condition on Discharge: Good Discharge Disposition: Discharge Home Discharge Time: <= 30 minutes Discharge Instructions Follow up Referrals: Gastroenterology - 2 Weeks @ [facility] New Medications: Ketorolac (Ketorolac) 10 Mg Tab 10 MG PO Q6HR PRN PAIN #15 Ref 0 TAB Chrissy Wilburn MD Nov 06, 2016 11:29
[2016-11-06] MEDS ORDERED: KETO10 PO (11:41)
[2016-11-06 12:00] VITALS: BP 159/90; PULSE 94; RESP 18; TEMP 97.6; O2SAT 92
[2016-11-06] MEDS ORDERED: POTASSIUM CHLORIDE 10 MEQ CONTROLLED RELEASE TAB PO ONE (13:00)
== END 2016-11-06 14:41 | disposition home or self-care (01) | DRG 418 ==
LOC: NEPC 21:46 → NEDA 11-03 02:48 → N07A 11-03 14:36
PROVIDERS: ADMIT Family Medicine; ATTEND Family Medicine
PROC: 0FT44ZZ Resection of Gallbladder, Percutaneous Endoscopic Approach (ICD-10-PCS; principal; 2016-11-04 19:03)
PROC: 0FC98ZZ Extirpation of Matter from Common Bile Duct, Via Natural or Artificial Opening Endoscopic (ICD-10-PCS; 2016-11-05)
DX: K80.63 Calculus of gallbladder and bile duct with acute cholecystitis with obstruction (principal); Q26.8 Other congenital malformations of great veins; K76.0 Fatty (change of) liver, not elsewhere classified; K26.9 Duodenal ulcer, unspecified as acute or chronic, without hemorrhage or perforation; E83.51 Hypocalcemia; E87.6 Hypokalemia; R74.0 Nonspecific elevation of levels of transaminase and lactic acid dehydrogenase [LDH]; G47.33 Obstructive sleep apnea (adult) (pediatric); K82.8 Other specified diseases of gallbladder; Q27.8 Other specified congenital malformations of peripheral vascular system; F41.9 Anxiety disorder, unspecified; Z87.891 Personal history of nicotine dependence; Z88.1 Allergy status to other antibiotic agents; Z90.5 Acquired absence of kidney; Z87.798 Personal history of other (corrected) congenital malformations
CPT/HCPCS: 74177; 74181; 74330; 76377; 76705; 80048; 80053; 80074; 80076; 82103; 82105; 82390; 82728; 83520; 83540; 83550; 83690; 85025; 85027; 86038; 86255; 88304; 96361; 96365; 96375; 96376; C1769; J0610; J0690; J1130; J1885; J2250; J2270; J2405; J3010; J3480; J7030; J7120; Q0163; Q9967

== ENCOUNTER 2016-11-14 15:23 | Emergency (ER) | payer SELFPAY ==
[~2016-11-14] VITALS: Ht 167.6 cm; Wt 95.0 kg
[~2016-11-14 15:23] MED LIST: KETO10 PO
[2016-11-14 15:26] VITALS: BP 136/88; PULSE 114; RESP 20; TEMP 98.6; O2SAT 100
[2016-11-14] MEDS ORDERED: SODIUM CHLOR 0.9% 1000 ML INJ 1,000 ML IV SCH (16:27)
[2016-11-14] MEDS ORDERED: SODIUM CHLORIDE 0.9% FLUSH 10 ML FLUSH IV FLUSH PRN (16:30)
[2016-11-14] MEDS ORDERED: MORPHINE SULFATE 4 MG/ML INJ IV PUSH ONE (16:30)
[2016-11-14] MEDS ORDERED: ONDANSETRON HCL 4 MG/2 ML VIAL IVP ONE (16:30)
--- NOTE | 2016-11-14 16:39 | PD ---
HPI Chief Complaint: Abdominal Pain Time Seen by Provider: 16:29 Travel History International Travel<30 days: No Contact w/Intl Traveler<30days: No Traveled to known affect area: No History of Present Illness HPI 51-year-old female with PMH of laparoscopic cholecystectomy [address] Waters presents to the ED for evaluation of sudden onset 10 out of 10 right upper quadrant abdominal pain. Patient states symptoms onset after eating eggs and cheese for breakfast. She endorses 5 or 6 episodes of nonbloody vomiting today. She denies fevers, chills, changes in bowel habits, dysuria. Her postop course was complicated by common bile duct stone that was removed by ERCP. She's not had a follow-up appointment yet. PFSH Past Medical History Autoimmune Disease: No Cancer: No Cardiovascular Problems: No Diabetes: No Diminished Hearing: No Genitourinary: Yes Immune Disorder: No Musculoskeletal: No Neurologic: No Psychiatric: No Reproductive: No Sleep Apnea: Yes Thyroid Disease: Yes ?: Not Past Surgical History Abdominal Surgery: Yes Cardiac Surgery: No Ear Surgery: No Endocrine Surgery: Yes (partial thyroidectomy) Eye Surgery: No Genitourinary Surgery: Yes (bladder repair at 2 years old) Gynecologic Surgery: Yes (hysterectomy) Hysterectomy: Yes Oral Surgery: No Thoracic Surgery: No Other Surgery: Yes (face lift, eye lift) Social History Alcohol Use: No Tobacco Use: No Substance Use: No Allergies-Medications (Allergen,Severity, Reaction): Coded Allergies: amoxicillin (Unverified Allergy, Severe, RASH, 11/14/16) Reported Meds & Prescriptions Reported Meds & Active Scripts Active Lortab (Hydrocodone-Acetaminophen) 5-325 Mg Tab 1 Tab PO Q6H PRN Zofran Odt (Ondansetron Odt) 4 Mg Tab 4 Mg SL Q6HR PRN Review of Systems Except as stated in HPI: all other systems reviewed are Neg Physical Exam Narrative GENERAL: Well-nourished, well-developed pleasant, obese white female in no acute distress. SKIN: Focused skin assessment warm/dry. HEAD: Normocephalic. EYES: No scleral icterus. No injection or drainage. NECK: Supple, trachea midline. No JVD or lymphadenopathy. CARDIOVASCULAR: Regular rate and rhythm without murmurs, gallops, or rubs. RESPIRATORY: Breath sounds equal bilaterally. No accessory muscle use. GASTROINTESTINAL: Abdomen soft, nondistended. ++ Right upper quadrant tenderness to palpation. Active bowel sounds. No palpable masses. MUSCULOSKELETAL: No cyanosis, or edema. BACK: Nontender without obvious deformity. + right sided CVA tenderness. Data Data Last Documented VS Vital Signs Date Time Temp Pulse Resp B/P (MAP) Pulse Ox O2 Delivery O2 Flow Rate FiO2 11/14/16 20:08 11/14/16 16:56 18 98 Room Air 11/14/16 15:26 98.6 114 Orders Orders Complete Blood Count With Diff (11/14/16 16:27) Comprehensive Metabolic Panel (11/14/16 16:27) Lipase (11/14/16 16:27) Prothrombin Time / Inr (Pt) (11/14/16 16:27) Act Partial Throm Time (Ptt) (11/14/16 16:27) Urinalysis - C+S If Indicated (11/14/16 16:27) Ct Abd/Pel W Iv Contrast(Rout) (11/14/16 16:27) Iv Access Insert/Monitor (11/14/16 16:27) Ecg Monitoring (11/14/16 16:27) Oximetry (11/14/16 16:27) Morphine Inj (Morphine Inj) (11/14/16 16:30) Ondansetron Inj (Zofran Inj) (11/14/16 16:30) Sodium Chlor 0.9% 1000 Ml Inj (Ns 1000 M (11/14/16 16:27) Sodium Chloride 0.9% Flush (Ns Flush) (11/14/16 16:30) NPO (11/14/16 16:27) Iohexol 350 Inj (Omnipaque 350 Inj) (11/14/16 17:58) Labs Laboratory Tests Test 11/14/16 16:50 White Blood Count 11.8 TH/MM3 Red Blood Count 4.70 MIL/MM3 Hemoglobin 13.5 GM/DL Hematocrit 40.2 % Mean Corpuscular Volume 85.5 FL Mean Corpuscular Hemoglobin 28.7 PG Mean Corpuscular Hemoglobin Concent 33.6 % Red Cell Distribution Width 13.5 % Platelet Count 344 TH/MM3 Mean Platelet Volume 9.5 FL Neutrophils (%) (Auto) 81.0 % Lymphocytes (%) (Auto) 14.4 % Monocytes (%) (Auto) 3.1 % Eosinophils (%) (Auto) 0.5 % Basophils (%) (Auto) 1.0 % Neutrophils # (Auto) 9.6 TH/MM3 Lymphocytes # (Auto) 1.7 TH/MM3 Monocytes # (Auto) 0.4 TH/MM3 Eosinophils # (Auto) 0.1 TH/MM3 Basophils # (Auto) 0.1 TH/MM3 CBC Comment AUTO DIFF Differential Comment AUTO DIFF CONFIRMED Platelet Estimate NORMAL Platelet Morphology Comment NORMAL Red Cell Morphology Comment NORMAL Prothrombin Time 10.3 SEC Prothromb Time International Ratio 0.9 RATIO Activated Partial Thromboplast Time 22.0 SEC Blood Urea Nitrogen 16 MG/DL Creatinine 0.82 MG/DL Random Glucose 132 MG/DL Total Protein 8.1 GM/DL Albumin 3.4 GM/DL Calcium Level 9.1 MG/DL Alkaline Phosphatase 111 U/L Aspartate Amino Transf (AST/SGOT) 77 U/L Alanine Aminotransferase (ALT/SGPT) 152 U/L Total Bilirubin 0.8 MG/DL Sodium Level 137 MEQ/L Potassium Level 4.6 MEQ/L Chloride Level 100 MEQ/L Carbon Dioxide Level 26.1 MEQ/L Anion Gap 11 MEQ/L Estimat Glomerular Filtration Rate 73 ML/MIN Lipase 47 U/L MDM Medical Decision Making Medical Screen Exam Complete: Yes Emergency Medical Condition: Yes Differential Diagnosis biliary obstruction versus abscess versus free air versus other Narrative Course 51-year-old female with PMH of laparoscopic cholecystectomy [address] Waters presents to the ED for evaluation of sudden onset 10/10 right upper quadrant abdominal pain.Onset after eating eggs and cheese for breakfast. She endorses 5 or 6 episodes of NBNB vomiting today. She denies fevers, chills, changes in bowel habits, dysuria. Her postop course was complicated by common bile duct stone that was removed by ERCP. patient is afebrile on presentation. She is nontoxic appearing but does have right upper quadrant tenderness to palpation. IV was established. Patient was administered a liter fluid, 4 mg Zofran, 4 mg morphine. CBC: WBC 11.8. CMP: AST 77, ALT 152. Bilirubin 0.8. Lipase 4.7. CT abdomen and pelvis: Fluid, gas bubbles in the gallbladder fossa at the cholecystectomy Stipe. Abscess or leak cannot be excluded per radiology read. On recheck the patient is resting comfortably, requesting to be discharged. I spoke with Dr. Waters. We reviewed his operative report and he is suspicious that this abnormality on CT may be hemostatic agent that he left in the gallbladder fossa. The patient is quite well-appearing on exam, afebrile, no extreme elevations of the LFTs. We will discharge the patient with a few doses of Zofran and pain medications. She was given strict instructions to call Dr. Waters's office on Tuesday for follow-up, return immediately for worsening symptoms. The patient indicated understanding of instructions and is agreeable to the care plan. She is stable and discharged home. Diagnosis Primary Impression: Right upper quadrant abdominal pain Referrals: Tod Waters MD Additional Instructions: Rest, hydrate. Return to normal, gentle activity as tolerated. Continue with bland diet as instructed at previous discharge. Take pain medications and Zofran as needed. Call Dr. Waters's office tomorrow for earlier appointment. Return to the ED for worsening symptoms or any urgent or emergent medical condition. Scripts Hydrocodone-Acetaminophen (Lortab) 5-325 Mg Tab 1 TAB PO Q6H Y for PAIN, #10 TAB 0 Refills Prov: Celine Norris MD 11/14/16 Ondansetron Odt (Zofran Odt) 4 Mg Tab 4 MG SL Q6HR Y for Nausea/Vomiting, #6 TAB 0 Refills Prov: Celine Nroris MD 11/14/16 Disposition: 01 DISCHARGE HOME Condition: Stable [place] Nov 14, 2016 16:39
[2016-11-14 16:56] VITALS: RESP 18; O2SAT 98
[2016-11-14 17:39] LABS: INTERNATIONAL NORMALIZED RATIO 0.9 RATIO; PROTHROMBIN TIME - PATIENT 10.3 SEC (9.8-11.6)
[2016-11-14 17:41] LABS: AUTOMATED NEUTROPHIL # 9.6 TH/MM3 (1.8-7.7); BASOPHIL # 0.1 TH/MM3 (0-0.2); EOSINOPHIL # 0.1 TH/MM3 (0-0.4); EOSINOPHIL % 0.5 % (0.0-4.0); HEMATOCRIT 40.2 % (35.0-46.0); LYMPH % 14.4 % (9.0-44.0); LYMPHOCYTE # 1.7 TH/MM3 (1.0-4.8); MEAN CELL VOLUME 85.5 FL (80.0-100.0); MEAN CORPUSCULAR HEMOGLOBIN 28.7 PG (27.0-34.0); MEAN CORPUSCULAR HGB CONC 33.6 % (32.0-36.0); MONO % 3.1 % (0.0-8.0); PLATELET COUNT 344 TH/MM3 (150-450); RED CELL DISTRIBUTION WIDTH 13.5 % (11.6-17.2); WHITE BLOOD COUNT 11.8 TH/MM3 (4.0-11.0)
[2016-11-14 17:53] LABS: ALT (GPT) 152 U/L (10-53); ANION GAP 11 MEQ/L (5-15); AST (GOT) 77 U/L (15-37); BICARBONATE 26.1 MEQ/L (21.0-32.0); BLOOD UREA NITROGEN 16 MG/DL (7-18); CHLORIDE 100 MEQ/L (98-107); GLOMERULAR FILTRATION RATE 73 ML/MIN (>89); POTASSIUM 4.6 MEQ/L (3.5-5.1); SODIUM (NA) 137 MEQ/L (136-145)
[2016-11-14 17:54] LABS: ALKALINE PHOSPHATASE 111 U/L (45-117); TOTAL BILIRUBIN ADULT 0.8 MG/DL (0.2-1.0)
[2016-11-14] MEDS ORDERED: IOHEXOL 350 MG/ML 10 ML VIAL (for RAD DIAG) IVCONTRAST ONE (17:58)
[2016-11-14 18:22] LABS: HEMO FLAGS AUTO DIFF; PLATELET ESTIMATE SMEAR NORMAL (NORMAL); PLATELET MORPHOLOGY NORMAL (NORMAL); SCAN/DIFF AUTO DIFF CONFIRMED
--- NOTE | 2016-11-14 18:26 | RADRPT ---
EXAM DATE/TIME: 11/14/2016 17:53 [facility] COMPARISON: CT ABDOMEN & PELVIS W CONTRAST, November 03, 2016, 1:18. INDICATIONS : Right upper quadrant pain. IV CONTRAST: 70 cc Omnipaque 350 (iohexol) IV ORAL CONTRAST: No oral contrast ingested. RADIATION DOSE: 16.54 CTDIvol (mGy) MEDICAL HISTORY : None provided SURGICAL HISTORY : Hysterectomy. Cholecystectomy.Right nephrectomy ENCOUNTER: Initial ACUITY: 3 days PAIN SCALE: 5/10 LOCATION: Right upper quadrant TECHNIQUE: Volumetric scanning of the abdomen and pelvis was performed. Using automated exposure control and ad justment of the mA and/or kV according to patient size, radiation dose was kept as low as reasonably achievable to obtain optimal diagnostic quality images. DICOM format image data is available electro nically for review and comparison. FINDINGS: CT Abdomen: The liver, spleen, pancreas, left kidney adrenals are unremarkable. The right kidney is a bsent surgically. There are fluid and gas bubbles in the gallbladder fossa with clips at the site imelda suring 4.3 cm in size. The appearance is nonspecific, however postoperative abscess is not excluded. There is no evidence for any appreciable pathological adenopathy, free fluid, or bowel obstruction. 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 CT pelvis: There is no evidence for mass, abscess formation, or any significant adenopathy within the pelvis. CONCLUSION: There is fluid and gas bubbles in gallbladder fossa at the site of cholecystectomy an d the possibility of abscess or leak is not excluded. Anshu Toledo MD on November 14, 2016 at 18:19 Board Certified Radiologist. This report was verified electronically.
[2016-11-14] MEDS ORDERED: ZOFR4TAB3 SL (19:42)
[2016-11-14] MEDS ORDERED: HYDR-3533 PO (19:42)
== END 2016-11-14 20:17 | disposition home or self-care (01) ==
LOC: NEPC 15:23
DX: R10.11 Right upper quadrant pain (principal); R11.10 Vomiting, unspecified
CPT/HCPCS: 74177; 80053; 83690; 85025; 85610; 85730; 96361; 96374; 96375; 99285; J2270; J2405; J7030; Q9967

== ENCOUNTER 2017-08-04 15:09 | Emergency (ER) | payer OTHER ==
[~2017-08-04] VITALS: Ht 165.1 cm; Wt 97.0 kg
[~2017-08-04 15:09] MED LIST changes: +HYDR-3533 PO; -KETO10 PO; +ZOFR4TAB3 SL
[2017-08-04 15:13] VITALS: BP 158/93; PULSE 97; RESP 18; TEMP 97.8; O2SAT 98
--- NOTE | 2017-08-04 15:29 | PD ---
HPI Chief Complaint: Injury Time Seen by Provider: 15:21 Travel History International Travel<30 days: No Contact w/Intl Traveler<30days: No Traveled to known affect area: No History of Present Illness HPI 52-year-old female presents emergency department for evaluation of left ankle pain after she dropped a 10 pound block of ice on her ankle last Tuesday. Patient states that she waited until today to come in because she was able to walk on the ankle did not believe it was broken. Says she has occasional "numbness" directly over the injury site but denies numbness or tingling elsewhere. Patient says that her pain in the anterior superior aspect of the ankle is worse with dangling her foot and pointing her toe decreases with rest. Patient states she has used Aleve without significant improvement. She says her pain is an aching 8/10 in severity. She denies any pain to her toes. She has full range of motion of her toes, decreased range of motion of her ankle secondary to pain. No radiation of pain. She has no other complaints today. She does not know when she had her last tetanus vaccination. 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) Gynecologic Surgery: Yes (hysterectomy) Hysterectomy: Yes Neurologic Surgery: No Oral Surgery: No Thoracic Surgery: No Other Surgery: Yes (face lift, eye lift, endoscopy with bile duct stone removal ) Social History Alcohol Use: No Tobacco Use: No Substance Use: No Allergies-Medications (Allergen,Severity, Reaction): Coded Allergies: amoxicillin (Unverified Allergy, Severe, RASH, 08/04/17) Reported Meds & Prescriptions Reported Meds & Active Scripts Active No Active Prescriptions or Reported Medications Review of Systems Except as stated in HPI: all other systems reviewed are Neg Physical Exam Narrative GENERAL: Well-nourished, well-developed patient. SKIN: Focused skin assessment warm/dry. HEAD: Normocephalic. EYES: No scleral icterus. No injection or drainage. NECK: Supple, trachea midline. No JVD or lymphadenopathy. CARDIOVASCULAR: Regular rate and rhythm without murmurs, gallops, or rubs. RESPIRATORY: Breath sounds equal bilaterally. No accessory muscle use. MUSCULOSKELETAL: No cyanosis, or edema. Left ankle-area of ecchymosis and edema anterior medial aspect of top of ankle, small area of broken skin without bleeding or evidence of contamination. limited dorsiflexion secondary to pain, full plantar flexion. No TTP to foot. Neurovascularly intact. BACK: Nontender without obvious deformity. No CVA tenderness. Data Data Last Documented VS Vital Signs Date Time Temp Pulse Resp B/P (MAP) Pulse Ox O2 Delivery O2 Flow Rate FiO2 08/04/17 15:13 97.8 97 18 158/93 (114) 98 Orders Orders Ankle, Complete ([id number]) (08/04/17 ) Ketorolac Inj (Toradol Inj) (08/04/17 15:30) Tetanus/Diphtheria Tox Adult (Tetanus/Di (08/04/17 15:30) Ibuprofen (Motrin) (08/04/17 15:30) Ed Discharge Order (08/04/17 16:52) MDM Medical Decision Making Medical Screen Exam Complete: Yes Emergency Medical Condition: Yes Differential Diagnosis Left ankle bursitis, cellulitis, fracture, osteonecrosis, sprain, strain, contusion Narrative Course 52-year-old female presents emergency department evaluation of left ankle pain after dropping a 10 pound lack of ice on it Tuesday. Physical exam findings most consistent with contusion versus fracture of the ankle. No obvious foot involvement. X-rays ordered to rule out fracture. No acute process seen on x-ray. Patient be discharged advised to keep foot elevated to reduce pain and swelling. Advised that she may use Giacomo wraps. Advised that she should go to podiatry or photo print specialist for further evaluation if her symptoms persist. Advised to return to the emergency department for worsening or persistent symptoms. Diagnosis Primary Impression: Contusion, foot Qualified Codes: S90.32XA - Contusion of left foot, initial encounter Referrals: Orthopedist [facility] Departure Forms: Tests/Procedures, Work Release Enter return to work date: August 05, 2017 Special Instructions: Allow time to raise leg to reduce swelling and pain. Additional Instructions: Use ice or heat for symptom relief. If no contraindications, you may use Tylenol or Motrin per package instructions for your pain. Elevate the joint above the heart to reduce swelling. You may use compression with Giacomo wrap or similar to reduce swelling. If symptoms persist or worsen, return to the emergency department. Follow up with your primary care physician within 2 days. Scripts No Active Prescriptions or Reported Meds Disposition: 01 DISCHARGE HOME Condition: Stable Traci Cast August 04, 2017 15:29
[2017-08-04] MEDS ORDERED: TETANUS/DIPHTHERIA TOXOID ADULT 0.5 ML VIAL IM ONE (15:30)
[2017-08-04] MEDS ORDERED: IBUPROFEN 800 MG TAB PO ONE (15:30)
[2017-08-04] MEDS ORDERED: KETOROLAC TROMETHAMINE 60 MG/2 ML (IM) VIAL IM ONE (15:30)
--- NOTE | 2017-08-04 16:47 | RADRPT ---
EXAM DATE/TIME: 08/04/2017 15:35 [place] COMPARISON: No previous studies available for comparison. INDICATIONS : Dropped a bag of ice on medial ankle one week ago. Pain and swelling. MEDICAL HISTORY : None. SURGICAL HISTORY : Cholecystectomy. Hysterectomy. ORIF Lt ankle. ENCOUNTER: Initial ACUITY: 1 week PAIN SCORE: 7/10 LOCATION: Left Ankle FINDINGS: No acute fracture or dislocation. Previous plate and screw fixation of the lateral malleolus. No radi opaque foreign bodies. CONCLUSION: 1. No acute findings. Salvador Rapp MD on August 04, 2017 at 16:42 Board Certified Radiologist. This report was verified electronically.
== END 2017-08-04 17:10 | disposition home or self-care (01) ==
LOC: PHEFT 15:09
DX: S90.32XA Contusion of left foot, initial encounter (principal); G47.30 Sleep apnea, unspecified; E07.9 Disorder of thyroid, unspecified; W22.8XXA Striking against or struck by other objects, initial encounter; Z23 Encounter for immunization; Z88.0 Allergy status to penicillin
CPT/HCPCS: 73610; 90471; 90714